=== PATIENT | male | born 1940 | race Caucasian/White ===

== ENCOUNTER 2018-03-10 17:29 | Inpatient (IN) | payer MEDICARE, BC ==
[2018-03-10] MEDS ORDERED: Sodium Chloride 0.9% 10 ML Syringe FLUSH PRN (17:58)
[2018-03-10] MEDS ORDERED: HYDROmorphone 2 MG/ML SDV IVPUSH ONE (17:58)
[2018-03-10] MEDS: Sodium Chloride 0.9% 1,000 ML IV SCH (18:28)
--- NOTE | 2018-03-10 18:44 | EDM.PDOC ---
ED HPI GENERAL MEDICAL PROBLEM - General Chief Complaint: Abdominal Pain Stated Complaint: ABDOMINAL PAIN Time Seen by Provider: 03/10/18 17:35 Source of Information: Reports: Patient, Family, Old Records History Limitations: Reports: No Limitations - History of Present Illness INITIAL COMMENTS - FREE TEXT/NARRATIVE: Mamadou comes into [facility] ED with LLQ abdominal pain since about yesterday afternoon. Pain is crampy, steady, and worse with recumbency. He ate popcorn 36 hrs ago, and believes this may have contributed to suspected diverticulitis. There have been some stools today, without blood, mucous, or diarrhea. There has been no fever, chills, sweats, nausea or vomiting. He had Bactrim DS and Flagyl at home, and started dosing at 4 pm. He has taken no analgesic meds. Lower abdomen Pain Score (Numeric/FACES): 8 - Related Data Allergies Allergy/AdvReac Type Severity Reaction Status Date / Time Iodinated Contrast- Oral and Allergy Swelling Verified 03/10/18 17:57 IV Dye Home Meds: Home Meds Calcium Carbonate [Calcium] 500 mg PO BID 03/10/18 [History] Cholecalciferol (Vitamin D3) [Vitamin D3] 1,000 units PO DAILY 03/10/18 [History ] Finasteride 5 mg DAILY 03/10/18 [History] Pantoprazole [ProTONIX] 40 mg PO DAILY 03/10/18 [History] Sulfamethoxazole/Trimethoprim [Bactrim 400-80 MG] 1 tab Q8H 03/10/18 [History] Tamsulosin HCl 0.8 mg BEDTIME 03/10/18 [History] metroNIDAZOLE [Flagyl] 500 mg PO Q8H 03/10/18 [History] Past Medical History HEENT History: Reports: Cataract Gastrointestinal History: Reports: Diverticulosis, GI Bleed Genitourinary History: Reports: Prostate Disorder Musculoskeletal History: Reports: Arthritis Endocrine/Metabolic History: Reports: Obesity/BMI 30+ Hematologic History: Reports: Anemia, Blood Transfusion(s) - Infectious Disease History Infectious Disease History: Reports: C-Difficile, Measles, Mumps - Past Surgical History HEENT Surgical History: Reports: Adenoidectomy, Cataract Surgery, Eye Surgery, Tonsillectomy Other HEENT Surgeries/Procedures: bilat cataract, L eye surgery GI Surgical History: Reports: Cholecystectomy, Colonoscopy, EGD Musculoskeletal Surgical History: Reports: Knee Replacement, Shoulder Surgery Other Musculoskeletal Surgeries/Procedures:: R shoulder rotar cuff, R knee replacement Social & Family History - Family History Family Medical History: Noncontributory - Tobacco Use Smoking Status *Q: Former Smoker Years of Tobacco use: 25 Used Tobacco, but Quit: Yes Month/Year Tobacco Last Used: 1985 - Caffeine Use Caffeine Use: Reports: Coffee, Soda - Recreational Drug Use Recreational Drug Use: No ED ROS GENERAL - Review of Systems Review Of Systems: See Below Constitutional: Reports: Decreased Appetite HEENT: Reports: No Symptoms Respiratory: Reports: No Symptoms Cardiovascular: Reports: No Symptoms Endocrine: Reports: No Symptoms GI/Abdominal: Reports: Abdominal Pain, Decreased Appetite, Distension : Reports: No Symptoms Musculoskeletal: Reports: No Symptoms Skin: Reports: No Symptoms Neurological: Reports: No Symptoms Psychiatric: Reports: No Symptoms Hematologic/Lymphatic: Reports: No Symptoms Immunologic: Reports: No Symptoms ED EXAM, GI/ABD - Physical Exam Exam: See Below General Appearance: Alert, WD/WN, Moderate Distress, Obese Eyes: Bilateral: Normal Appearance, EOMI Ears: Normal External Exam Nose: Normal Inspection Throat/Mouth: Normal Inspection, Normal Oropharynx Head: Atraumatic, Normocephalic Neck: Normal Inspection, Supple, Non-Tender, Full Range of Motion Respiratory/Chest: Lungs Clear, Normal Breath Sounds, Chest Non-Tender Cardiovascular: Regular Rate, Rhythm, No Murmur GI/Abdominal Exam: Distended, Guarding, Tender (Male) Exam: Deferred Rectal (Males) Exam: Deferred Back Exam: Normal Inspection, Full Range of Motion Extremities: Normal Inspection Neurological: Alert, Oriented, CN II-XII Intact, No Motor/Sensory Deficits Psychiatric: Normal Affect, Anxious Skin Exam: Warm, Intact, Normal Color Lymphatic: No Adenopathy Course - Vital Signs Text/Narrative:: Following assessment at the [facility] ED, an IV was inserted into the RUE, and 1L NS was administered with Dilaudid 2 mg in divided doses pending results of lab work : CBC noted Hgb 15.7 gm, WBC 9,700, ptls normal; nonFBS 185 mg %, lactic a 1.7, other labs were baseline; non contrast Abd-Pelvic CT: findings consistent with acute diverticulitis affecting the entire sigmoid colon, no free air, no abscess formation detected. Patient will be admitted for management. Last Recorded V/S: Last Vital Signs Temp 36.6 C 03/10/18 17:30 Pulse 94 03/10/18 17:30 Resp 20 03/10/18 17:30 BP 148/59 H 03/10/18 17:30 Pulse Ox 99 03/10/18 17:30 - Orders/Labs/Meds Orders: Active Orders 24 hr Category Date Time Status Patient Status Manage Transfer [TRANSFER] Routine ADT 03/10/18 19:05 Ordered Abdomen Pelvis wo Cont [CT] Stat Exams 03/10/18 18:33 Taken UA W/MICROSCOPIC [URIN] Stat Lab 03/10/18 17:58 Ordered Sodium Chloride 0.9% [Normal Saline] 1,000 ml Med 03/10/18 18:00 Active IV ASDIRECTED Sodium Chloride 0.9% [Saline Flush] Med 03/10/18 17:58 Active 10 ml FLUSH ASDIRECTED PRN Peripheral IV Insertion Adult [OM.PC] Routine Oth 03/10/18 17:58 Ordered Medication Orders Sodium Chloride (Normal Saline) 1,000 mls @ 500 mls/hr IV ASDIRECTED [facility] Last Admin: 03/10/18 18:28 Dose: 500 mls/hr Sodium Chloride (Saline Flush) 10 ml FLUSH ASDIRECTED PRN PRN Reason: Keep Vein Open Labs: Laboratory Tests 03/10/18 03/10/18 03/10/18 Range/Units 18:07 18:07 18:07 WBC 9.7 (4.5-12.0) X10-3/uL RBC 5.34 (4.30-5.75) x10(6)uL Hgb 15.7 H (11.5-15.5) g/dL Hct 46.5 (30.0-51.3) % MCV 87.2 (80-96) fL MCH 29.3 (27.7-33.6) pg MCHC 33.7 (32.2-35.4) g/dL RDW 13.2 (11.5-15.5) % Plt Count 275 (125-369) X10(3)uL MPV 7.5 (7.4-10.4) fL Neut % (Auto) 83.5 H (46-82) % Lymph % (Auto) 8.4 L (13-37) % [place] % (Auto) 5.1 (4-12) % Eos % (Auto) 2 (1.0-5.0) % Baso % (Auto) 1 (0-2) % Neut # (Auto) 8.1 (1.6-8.3) # Lymph # (Auto) 0.8 (0.6-5.0) # [place] # (Auto) 0.5 (0.0-1.3) # Eos # (Auto) 0.2 (0.0-0.8) # Baso # (Auto) 0.1 (0.0-0.2) # Sodium 139 (135-145) mmol/L Potassium 3.9 (3.5-5.3) mmol/L Chloride 103 (100-110) mmol/L Carbon Dioxide 28 (21-32) mmol/L BUN 9 (7-18) mg/dL Creatinine 1.1 (0.70-1.30) mg/dL Est Cr Clr Drug Dosing 61.80 mL/min Estimated GFR (MDRD) > 60 (>60) BUN/Creatinine Ratio 8.2 L (9-20) Glucose 185 H (80-116) mg/dL Lactic Acid 1.7 (0.4-2.2) mmol/L Calcium 8.9 (8.6-10.2) mg/dL Total Bilirubin 0.9 (0.1-1.3) mg/dL AST 10 (5-25) IU/L ALT 23 (12-36) U/L Alkaline Phosphatase 63 (56-112) IU/L Total Protein 7.3 (6.0-8.0) g/dL Albumin 3.1 L (3.2-4.6) g/dL Globulin 4.2 g/dL Albumin/Globulin Ratio 0.7 Meds: Medications Generic Name Dose Route Start Last Admin Trade Name Freq PRN Reason Stop Dose Admin Sodium Chloride 1,000 mls @ 500 mls/hr 03/10/18 18:00 03/10/18 18:28 Normal Saline IV 500 mls/hr ASDIRECTED [facility] Administration Sodium Chloride 10 ml 03/10/18 17:58 Saline Flush FLUSH ASDIRECTED PRN Keep Vein Open Discontinued Medications Generic Name Dose Route Start Last Admin Trade Name Freq PRN Reason Stop Dose Admin Hydromorphone HCl 2 mg 03/10/18 17:58 03/10/18 18:27 Dilaudid IVPUSH 03/10/18 17:59 2 mg ONETIME ONE Administration Departure - Departure Time of Disposition: 19:09 Disposition: Admitted As Inpatient 68 Condition: Fair Clinical Impression: Acute diverticulitis - Discharge Information *PRESCRIPTION DRUG MONITORING PROGRAM REVIEWED*: Not Applicable *COPY OF PRESCRIPTION DRUG MONITORING REPORT IN PATIENT DOMINIC: Not Applicable Referrals: Soy Rouse MD [Primary Care Provider] - Forms: ED Department Discharge - Problem List & Annotations (1) Acute diverticulitis SNOMED Code(s): 048286810 Code(s): K57.92 - DVTRCLI OF INTEST, PART UNSP, W/O PERF OR ABSCESS W/O BLEED Status: Acute Current Visit: Yes Annotation/Comment:: admit to med- surg. - Problem List Review Problem List Initiated/Reviewed/Updated: Yes - My Orders Last 24 Hours: My Active Orders 03/10/18 17:58 UA W/MICROSCOPIC [URIN] Stat Sodium Chloride 0.9% [Saline Flush] 10 ml FLUSH ASDIRECTED PRN Peripheral IV Insertion Adult [OM.PC] Routine 03/10/18 18:00 Sodium Chloride 0.9% [Normal Saline] 1,000 ml IV ASDIRECTED 03/10/18 18:33 Abdomen Pelvis wo Cont [CT] Stat 03/10/18 19:05 Patient Status Manage Transfer [TRANSFER] Routine - Assessment/Plan Last 24 Hours: My Active Orders 03/10/18 17:58 UA W/MICROSCOPIC [URIN] Stat Sodium Chloride 0.9% [Saline Flush] 10 ml FLUSH ASDIRECTED PRN Peripheral IV Insertion Adult [OM.PC] Routine 03/10/18 18:00 Sodium Chloride 0.9% [Normal Saline] 1,000 ml IV ASDIRECTED 03/10/18 18:33 Abdomen Pelvis wo Cont [CT] Stat 03/10/18 19:05 Patient Status Manage Transfer [TRANSFER] Routine Plan: Hospitalist to see in the am.
[2018-03-10] MEDS ORDERED: Sodium Chloride 0.9% 1,000 ML IV SCH (19:45)
[2018-03-10] MEDS ORDERED: Levofloxacin/Dextrose 5%-Water 150 ML IV ONE (20:00)
[2018-03-10] MEDS: Levofloxacin/Dextrose 5%-Water 750 MG in Premix Bag 1 BAG IV SCH (20:06)
[2018-03-10] MEDS ORDERED: Ketorolac 30 MG/ML SDV IVPUSH PRN (22:02)
[2018-03-10] MEDS: metroNIDAZOLE/Normal Saline 500 MG in Premix Bag 1 BAG IV SCH (22:07)
[2018-03-11] MEDS: Sodium Chloride 0.9% 1,000 ML IV SCH ×3 (01:21→15:45)
[2018-03-11] MEDS: metroNIDAZOLE/Normal Saline 500 MG in Premix Bag 1 BAG IV SCH ×3 (06:07→22:44)
[2018-03-11] MEDS ORDERED: Ketorolac 15 MG/ML SDV IVPUSH PRN (08:27)
--- NOTE | 2018-03-11 09:11 | PCM.HP ---
H&P History of Present Illness - General Date of Service: 03/11/18 Admit Problem/Dx: Admission Diagnosis/Problem Admission Diagnosis/Problem Acute diverticulitis of intestine History Limitations: Reports: No Limitations - History of Present Illness Initial Comments - Free Text/Narative: 77 yo with severe,sharp lower left abd pain x 3 days.Started after ingesting popcorn. No association with changes in bowel habits.He does have a h/o diverticulitis. Last colonoscopy about 3 years ago. Lower abdomen Pain Score (Numeric/FACES): 3 - Related Data Allergies/Adverse Reactions: Allergies Allergy/AdvReac Type Severity Reaction Status Date / Time Iodinated Contrast- Oral and Allergy Swelling Verified 03/10/18 17:57 IV Dye Home Medications: Home Meds Calcium Carbonate [Calcium] 500 mg PO BID 03/10/18 [History] Cholecalciferol (Vitamin D3) [Vitamin D3] 1,000 units PO DAILY 03/10/18 [History ] Finasteride 5 mg DAILY 03/10/18 [History] Pantoprazole [ProTONIX] 40 mg PO DAILY 03/10/18 [History] Sulfamethoxazole/Trimethoprim [Bactrim 400-80 MG] 1 tab Q8H 03/10/18 [History] Tamsulosin HCl 0.8 mg BEDTIME 03/10/18 [History] metroNIDAZOLE [Flagyl] 500 mg PO Q8H 03/10/18 [History] Dextran 70/Hypromellose [Artificial Tears] 1 drop EYEBOTH ASDIRECTED PRN [History] Past Medical History HEENT History: Reports: Cataract Gastrointestinal History: Reports: Diverticulosis, GI Bleed Genitourinary History: Reports: Prostate Disorder Musculoskeletal History: Reports: Arthritis Endocrine/Metabolic History: Reports: Obesity/BMI 30+ Hematologic History: Reports: Anemia, Blood Transfusion(s) - Infectious Disease History Infectious Disease History: Reports: C-Difficile, Measles, Mumps - Past Surgical History HEENT Surgical History: Reports: Adenoidectomy, Cataract Surgery, Eye Surgery, Tonsillectomy Other HEENT Surgeries/Procedures: bilat cataract, L eye surgery GI Surgical History: Reports: Cholecystectomy, Colonoscopy, EGD Musculoskeletal Surgical History: Reports: Knee Replacement, Shoulder Surgery Other Musculoskeletal Surgeries/Procedures:: R shoulder rotar cuff, R knee replacement Social & Family History - Family History Family Medical History: Noncontributory - Tobacco Use Smoking Status *Q: Former Smoker Years of Tobacco use: 25 Used Tobacco, but Quit: Yes Month/Year Tobacco Last Used: 25 years ago - Caffeine Use Caffeine Use: Reports: Soda Other Caffeine Use: 1 and half soda daily - Recreational Drug Use Recreational Drug Use: No H&P Review of Systems - Review of Systems: Review Of Systems: ROS reveals no pertinent complaints other than HPI. Exam - Exam Exam: See Below - Vital Signs Vital Signs: Last Vital Signs Temp 97.6 F 03/11/18 04:00 Pulse 69 03/11/18 04:00 Resp 20 03/11/18 04:00 BP 122/64 03/11/18 04:00 Pulse Ox 95 03/10/18 22:00 Weight: 121.223 kg - Exam General: Alert, Oriented, 4 HEENT: PERRLA, Hearing Intact, Mucosa Moist & [place], Nares Patent, Normal Nasal Septum, Posterior Pharynx Clear, Conjunctiva Clear, EOMI, EACs Clear, TMs Clear Neck: Supple, Trachea Midline, 2 Lungs: Clear to Auscultation, Normal Respiratory Effort Cardiovascular: Regular Rate, Regular Rhythm GI/Abdominal Exam: Normal Bowel Sounds, Tender (LLQ). No: Mass, Splenomegaly (Male) Exam: Deferred Rectal (Males) Exam: Deferred Back Exam: Normal Inspection, Full Range of Motion, NT Extremities: Normal Inspection, Normal Range of Motion, Non-Tender, No Pedal Edema, Normal Capillary Refill Skin: Warm, Dry, Intact Neurological: Cranial Nerves Intact, Reflexes Equal Bilateral Neuro Extensive - Mental Status: Alert, Oriented x3, Normal Mood/Affect, Normal Cognition Neuro Extensive - Motor, Sensory, Reflexes: CN II-XII Intact, Normal Gait, Normal Reflexes Psychiatric: Alert, Normal Affect, Normal Mood - Patient Data Lab Results Last 24 hrs: Laboratory Results - last 24 hr 03/10/18 03/10/18 03/10/18 Range/Units 18:07 18:07 18:07 WBC 9.7 (4.5-12.0) X10-3/uL RBC 5.34 (4.30-5.75) x10(6)uL Hgb 15.7 H (11.5-15.5) g/dL Hct 46.5 (30.0-51.3) % MCV 87.2 (80-96) fL MCH 29.3 (27.7-33.6) pg MCHC 33.7 (32.2-35.4) g/dL RDW 13.2 (11.5-15.5) % Plt Count 275 (125-369) X10(3)uL MPV 7.5 (7.4-10.4) fL Neut % (Auto) 83.5 H (46-82) % Lymph % (Auto) 8.4 L (13-37) % [place] % (Auto) 5.1 (4-12) % Eos % (Auto) 2 (1.0-5.0) % Baso % (Auto) 1 (0-2) % Neut # (Auto) 8.1 (1.6-8.3) # Lymph # (Auto) 0.8 (0.6-5.0) # [place] # (Auto) 0.5 (0.0-1.3) # Eos # (Auto) 0.2 (0.0-0.8) # Baso # (Auto) 0.1 (0.0-0.2) # Sodium 139 (135-145) mmol/L Potassium 3.9 (3.5-5.3) mmol/L Chloride 103 (100-110) mmol/L Carbon Dioxide 28 (21-32) mmol/L BUN 9 (7-18) mg/dL Creatinine 1.1 (0.70-1.30) mg/dL Est Cr Clr Drug Dosing 61.80 mL/min Estimated GFR (MDRD) > 60 (>60) BUN/Creatinine Ratio 8.2 L (9-20) Glucose 185 H (80-116) mg/dL Lactic Acid 1.7 (0.4-2.2) mmol/L Calcium 8.9 (8.6-10.2) mg/dL Total Bilirubin 0.9 (0.1-1.3) mg/dL AST 10 (5-25) IU/L ALT 23 (12-36) U/L Alkaline Phosphatase 63 (56-112) IU/L Total Protein 7.3 (6.0-8.0) g/dL Albumin 3.1 L (3.2-4.6) g/dL Globulin 4.2 g/dL Albumin/Globulin Ratio 0.7 Urine Color (YELLOW) Urine Appearance (CLEAR) Urine pH (5.0-6.5) Ur Specific [place] (1.010-1.025) Urine Protein (NEGATIVE) mg/dL Urine Glucose (UA) (NEGATIVE) mg/dL Urine Ketones (NEGATIVE) mg/dL Urine Occult Blood (NEGATIVE) Urine Nitrite (NEGATIVE) Urine Bilirubin (NEGATIVE) Urine Urobilinogen (NEGATIVE) mg/dL Ur Leukocyte Esterase (NEGATIVE) Urine RBC (0) Urine WBC (0) Ur Squamous Epith Cells (NS,R,O) Urine Bacteria (NS) Urine Mucus (NS) 03/10/18 Range/Units 20:43 WBC (4.5-12.0) X10-3/uL RBC (4.30-5.75) x10(6)uL Hgb (11.5-15.5) g/dL Hct (30.0-51.3) % MCV (80-96) fL MCH (27.7-33.6) pg MCHC (32.2-35.4) g/dL RDW (11.5-15.5) % Plt Count (125-369) X10(3)uL MPV (7.4-10.4) fL Neut % (Auto) (46-82) % Lymph % (Auto) (13-37) % [place] % (Auto) (4-12) % Eos % (Auto) (1.0-5.0) % Baso % (Auto) (0-2) % Neut # (Auto) (1.6-8.3) # Lymph # (Auto) (0.6-5.0) # [place] # (Auto) (0.0-1.3) # Eos # (Auto) (0.0-0.8) # Baso # (Auto) (0.0-0.2) # Sodium (135-145) mmol/L Potassium (3.5-5.3) mmol/L Chloride (100-110) mmol/L Carbon Dioxide (21-32) mmol/L BUN (7-18) mg/dL Creatinine (0.70-1.30) mg/dL Est Cr Clr Drug Dosing mL/min Estimated GFR (MDRD) (>60) BUN/Creatinine Ratio (9-20) Glucose (80-116) mg/dL Lactic Acid (0.4-2.2) mmol/L Calcium (8.6-10.2) mg/dL Total Bilirubin (0.1-1.3) mg/dL AST (5-25) IU/L ALT (12-36) U/L Alkaline Phosphatase (56-112) IU/L Total Protein (6.0-8.0) g/dL Albumin (3.2-4.6) g/dL Globulin g/dL Albumin/Globulin Ratio Urine Color Yellow (YELLOW) Urine Appearance Clear (CLEAR) Urine pH 5.0 (5.0-6.5) Ur Specific [place] 1.020 (1.010-1.025) Urine Protein Negative (NEGATIVE) mg/dL Urine Glucose (UA) Normal (NEGATIVE) mg/dL Urine Ketones Negative (NEGATIVE) mg/dL Urine Occult Blood Negative (NEGATIVE) Urine Nitrite Negative (NEGATIVE) Urine Bilirubin Small H (NEGATIVE) Urine Urobilinogen 1 H (NEGATIVE) mg/dL Ur Leukocyte Esterase Small H (NEGATIVE) Urine RBC 0-5 (0) Urine WBC 0-5 (0) Ur Squamous Epith Cells Occasional (NS,R,O) Urine Bacteria Few H (NS) Urine Mucus Few H (NS) Result Diagrams: 03/10/18 18:07 03/10/18 18:07 - Problem List (1) Acute diverticulitis SNOMED Code(s): 516734694 ICD Code: K57.92 - DVTRCLI OF INTEST, PART UNSP, W/O PERF OR ABSCESS W/O BLEED Status: Acute Current Visit: Yes Problem Details: admit to med- surg. (2) LADARIUS (obstructive sleep apnea) SNOMED Code(s): 81163911 ICD Code: G47.33 - OBSTRUCTIVE SLEEP APNEA (ADULT) (PEDIATRIC) Status: Acute Current Visit: Yes (3) HLD (hyperlipidemia) SNOMED Code(s): 48907990 ICD Code: E78.5 - HYPERLIPIDEMIA, UNSPECIFIED Status: Chronic Current Visit: Yes Qualifiers: Hyperlipidemia type: unspecified Qualified Code(s): E78.5 - Hyperlipidemia , unspecified (4) BPH (benign prostatic hyperplasia) SNOMED Code(s): 297157519 ICD Code: N40.0 - BENIGN PROSTATIC HYPERPLASIA WITHOUT LOWER URINRY TRACT SYMP Status: Chronic Current Visit: Yes (5) Obesity SNOMED Code(s): 104447457, 260476912 ICD Code: E66.9 - OBESITY, UNSPECIFIED Status: Chronic Current Visit: Yes Qualifiers: Obesity type: due to excess calories Problem List Initiated/Reviewed/Updated: Yes Orders Last 24hrs: Active Orders 24 hr Category Date Time Status Bedrest Bathroom Privileges [RC] ASDIRECTED Care 03/10/18 19:10 Active Oxygen Therapy [RC] PRN Care 03/10/18 19:10 Active Vital Signs [RC] 00,04,08,12,16,20 Care 03/10/18 19:10 Active Abdomen Pelvis wo Cont [CT] Stat Exams 03/10/18 18:33 Taken Ketorolac [Toradol] Med 03/11/18 08:27 Active 15 mg IVPUSH Q6H PRN Levofloxacin/Dextrose 5%-Water [Levaquin in D5W 750 MG/ Med 03/10/18 20:00 Active 150 ML] 750 mg Premix Bag 1 bag IV Q24H Sodium Chloride 0.9% [Normal Saline] 1,000 ml Med 03/10/18 18:00 Active IV ASDIRECTED Sodium Chloride 0.9% [Normal Saline] 1,000 ml Med 03/10/18 19:15 Active IV ASDIRECTED Sodium Chloride 0.9% [Normal Saline] 1,000 ml Med 03/10/18 19:45 Active IV ASDIRECTED Sodium Chloride 0.9% [Saline Flush] Med 03/10/18 17:58 Active 10 ml FLUSH ASDIRECTED PRN metroNIDAZOLE/Normal Saline [Flagyl 500 MG in NS 100 ML Med 03/10/18 22:00 Active ] 500 mg Premix Bag 1 bag IV Q8H Peripheral IV Insertion Adult [OM.PC] Routine Oth 03/10/18 17:58 Ordered Resuscitation Status Routine Resus Stat 03/10/18 19:10 Ordered Medication Orders Sodium Chloride (Normal Saline) 1,000 mls @ 500 mls/hr IV ASDIRECTED [facility] Last Admin: 03/10/18 18:28 Dose: 500 mls/hr Sodium Chloride (Normal Saline) 1,000 mls @ 150 mls/hr IV ASDIRECTED [facility] Last Admin: 03/11/18 01:21 Dose: 150 mls/hr Levofloxacin/Dextrose 750 mg/ (Premix) 150 mls @ 100 mls/hr IV Q24H [facility] Last Admin: 03/10/18 20:06 Dose: 100 mls/hr Metronidazole 500 mg/ Premix 100 mls @ 100 mls/hr IV Q8H [facility] Last Admin: 03/11/18 06:07 Dose: 100 mls/hr Infusion: 03/10/18 23:07 Dose: 100 mls/hr Admin: 03/10/18 22:07 Dose: 100 mls/hr Sodium Chloride (Normal Saline) 1,000 mls @ 150 mls/hr IV ASDIRECTED [facility] Ketorolac Tromethamine (Toradol) 15 mg IVPUSH Q6H PRN PRN Reason: PAIN Sodium Chloride (Saline Flush) 10 ml FLUSH ASDIRECTED PRN PRN Reason: Keep Vein Open Assessment/Plan Comment:: Sammy has improved in his pain. He has no fever chills and feels better today. I' m going to increase his fluid intake orally, but no solid food. Continue Levaquin and Flagyl.
--- NOTE | 2018-03-11 09:44 | CT ---
INDICATION: Suspect acute diverticulitis, left lower quadrant pain with guarding. CT ABDOMEN AND PELVIS WITHOUT CONTRAST: Spiral 1.25 mm axial sections were obtained through the abdomen and pelvis without contrast, due to apparent allergy. Sagittal and coronal reconstructions were obtained. Total exam DLP = 2,295.89 mGy-cm. At the lung bases, there are some linear densities compatible with minimal fibrosis and possibly some very minimal atelectasis. No active infiltrate or effusion was seen. The heart did not appear enlarged. No pericardial effusion was seen. The liver did not appear enlarged. However, it was relatively low in density, compatible with fatty infiltration. The adrenal glands appeared normal. There is some renal cortical scarring noted bilaterally with a 23 mm exophytic rounded mass off the posterolateral cortex of the mid pole of the left kidney, most likely representing a cyst. Renal cortex is only minimally scarred on the left. The spleen and pancreas appear normal with some fatty replacement of the pancreas noted. Calcifications are noted in the abdominal aorta and at the origin of the celiac axis and superior mesenteric artery with calcifications in the iliac and femoral arteries. Diverticulosis coli is noted throughout most of the colon with most numerus diverticula in the distal descending and sigmoid area, where a fairly long segment of thickened wall and fat stranding adjacent to the colon is noted, compatible with diverticulitis. No abscess or free air was seen. No free fluid collection was identified. No other mass lesions, organomegaly, or free fluid collections were identified in the abdomen or pelvis. The gallbladder is absent, compatible with history of its removal. No retroperitoneal masses were identified with minimal retroperitoneal lymphadenopathy, which is nonspecific. An umbilical hernia is noted, including only fat. IMPRESSION: 1. Most notable finding is an area of diverticulitis in the distal descending - sigmoid colon. 2. Diverticulosis coli in general without evidence of diverticulitis, except in the distal descending - sigmoid area. 3. ASD. 4. Minimal scarring in lung bases. 5. Degenerative changes and some disk disease thoracolumbar spine. 6. Renal cortical scarring with a small probably benign cyst off the left kidney. MTDD
[2018-03-11] MEDS: Levofloxacin/Dextrose 5%-Water 750 MG in Premix Bag 1 BAG IV SCH (19:19)
[2018-03-12] MEDS: metroNIDAZOLE/Normal Saline 500 MG in Premix Bag 1 BAG IV SCH (05:03)
--- NOTE | 2018-03-12 09:36 | PCM.PN ---
- General Info Date of Service: 03/12/18 Subjective Update: Mamadou has been able to tolerate full liquid diet, with minimal pain. He feels ready to go home today. Functional Status: Reports: Pain Controlled - Review of Systems Pulmonary: Reports: No Symptoms Cardiovascular: Reports: No Symptoms Gastrointestinal: Reports: No Symptoms - Patient Data Vitals - Most Recent: Last Vital Signs Temp 97.6 F 03/12/18 05:00 Pulse 65 03/12/18 05:00 Resp 16 03/12/18 05:00 BP 116/69 03/12/18 05:00 Pulse Ox 94 L 03/12/18 05:00 Weight - Most Recent: 121.223 kg I&O - Last 24 Hours: Intake & Output 03/11/18 03/12/18 03/12/18 22:59 06:59 14:59 Intake Total 1500 828 Balance 1500 828 Lab Results Last 24 Hours: Laboratory Results - last 24 hr 03/12/18 03/12/18 Range/Units 06:06 06:06 WBC 6.7 (4.5-12.0) X10-3/uL RBC 4.69 (4.30-5.75) x10(6)uL Hgb 13.7 (11.5-15.5) g/dL Hct 40.9 (30.0-51.3) % MCV 87.2 (80-96) fL MCH 29.3 (27.7-33.6) pg MCHC 33.6 (32.2-35.4) g/dL RDW 13.2 (11.5-15.5) % Plt Count 217 (125-369) X10(3)uL MPV 7.7 (7.4-10.4) fL Neut % (Auto) 70.0 (46-82) % Lymph % (Auto) 15.5 (13-37) % [place] % (Auto) 8.4 (4-12) % Eos % (Auto) 6 H (1.0-5.0) % Baso % (Auto) 1 (0-2) % Neut # (Auto) 4.7 (1.6-8.3) # Lymph # (Auto) 1.0 (0.6-5.0) # [place] # (Auto) 0.6 (0.0-1.3) # Eos # (Auto) 0.4 (0.0-0.8) # Baso # (Auto) 0.0 (0.0-0.2) # Sodium 141 (135-145) mmol/L Potassium 4.0 (3.5-5.3) mmol/L Chloride 108 D (100-110) mmol/L Carbon Dioxide 26 (21-32) mmol/L BUN 11 (7-18) mg/dL Creatinine 0.9 (0.70-1.30) mg/dL Est Cr Clr Drug Dosing 75.53 mL/min Estimated GFR (MDRD) > 60 (>60) BUN/Creatinine Ratio 12.2 (9-20) Glucose 100 D (80-116) mg/dL Calcium 8.7 (8.6-10.2) mg/dL Total Bilirubin 1.1 (0.1-1.3) mg/dL AST 12 D (5-25) IU/L ALT 18 D (12-36) U/L Alkaline Phosphatase 47 L (56-112) IU/L Total Protein 6.3 (6.0-8.0) g/dL Albumin 2.5 L (3.2-4.6) g/dL Globulin 3.8 g/dL Albumin/Globulin Ratio 0.7 Med Orders - Current: Current Medications Sodium Chloride (Normal Saline) 1,000 mls @ 500 mls/hr IV ASDIRECTED [facility] Last Admin: 03/11/18 15:45 Dose: 150 mls/hr Sodium Chloride (Normal Saline) 1,000 mls @ 150 mls/hr IV ASDIRECTED [facility] Last Admin: 03/11/18 09:20 Dose: 150 mls/hr Levofloxacin/Dextrose 750 mg/ (Premix) 150 mls @ 100 mls/hr IV Q24H [facility] Last Admin: 03/11/18 19:19 Dose: 100 mls/hr Metronidazole 500 mg/ Premix 100 mls @ 100 mls/hr IV Q8H [facility] Last Admin: 03/12/18 05:03 Dose: 100 mls/hr Sodium Chloride (Normal Saline) 1,000 mls @ 150 mls/hr IV ASDIRECTED [facility] Last Admin: 03/12/18 04:56 Dose: 150 mls/hr Ketorolac Tromethamine (Toradol) 15 mg IVPUSH Q6H PRN PRN Reason: PAIN Sodium Chloride (Saline Flush) 10 ml FLUSH ASDIRECTED PRN PRN Reason: Keep Vein Open Discontinued Medications Hydromorphone HCl (Dilaudid) 2 mg IVPUSH ONETIME ONE Stop: 03/10/18 17:59 Last Admin: 03/10/18 18:27 Dose: 2 mg Levofloxacin/Dextrose (Levaquin In D5w 750 Mg/150 Ml) Confirm Administered Dose 150 mls @ as directed IV .STK-MED ONE Stop: 03/10/18 20:01 Last Admin: 03/10/18 21:33 Dose: Not Given Ketorolac Tromethamine (Toradol) 30 mg IVPUSH Q6H PRN PRN Reason: Pain Stop: 03/15/18 22:04 Last Admin: 03/10/18 22:59 Dose: 30 mg - Exam General: Alert, Oriented HEENT: Pupils Equal Neck: Supple GI/Abdominal Exam: Normal Bowel Sounds, Tender (llq) (Male) Exam: No Hernia - Problem List & Annotations (1) Acute diverticulitis SNOMED Code(s): 696907178 Code(s): K57.92 - DVTRCLI OF INTEST, PART UNSP, W/O PERF OR ABSCESS W/O BLEED Status: Acute Current Visit: Yes Annotation/Comment:: admit to med- surg. (2) LADARIUS (obstructive sleep apnea) SNOMED Code(s): 13947419 Code(s): G47.33 - OBSTRUCTIVE SLEEP APNEA (ADULT) (PEDIATRIC) Status: Acute Current Visit: Yes (3) HLD (hyperlipidemia) SNOMED Code(s): 94789956 Code(s): E78.5 - HYPERLIPIDEMIA, UNSPECIFIED Status: Chronic Current Visit: Yes Qualifiers: Hyperlipidemia type: unspecified Qualified Code(s): E78.5 - Hyperlipidemia , unspecified (4) BPH (benign prostatic hyperplasia) SNOMED Code(s): 802491680 Code(s): N40.0 - BENIGN PROSTATIC HYPERPLASIA WITHOUT LOWER URINRY TRACT SYMP Status: Chronic Current Visit: Yes (5) Obesity SNOMED Code(s): 012209225, 718978789 Code(s): E66.9 - OBESITY, UNSPECIFIED Status: Chronic Current Visit: Yes Qualifiers: Obesity type: due to excess calories - Problem List Review Problem List Initiated/Reviewed/Updated: Yes - My Orders Last 24 Hours: My Active Orders 03/11/18 10:31 Influenza Vaccine Charge [RC] .DISCHARGE 03/11/18 Dinner Full Liquid Diet [DIET] - Plan Plan:: Sammy will need colonoscopy at some point. I've advised him to see his primary care physician in about 1-2 weeks. I will advance his diet to regular diet, and discharge him home today on oral Levaquin and Flagyl.
--- NOTE | 2018-03-12 10:11 | DISCH ---
DISCHARGE DATE: 03/12/2018 REASON FOR ADMISSION: Acute diverticulitis. DISCHARGE DIAGNOSIS: Acute diverticulitis. HISTORY OF PRESENT ILLNESS: This is a 77-year-old male who was admitted for 2- day history of left lower quadrant abdominal pain that was found to be diverticulitis on the CT scan. He was admitted, put n.p.o., given fluids and IV Levaquin and Flagyl, improved progressively and is ready to go home on the March 12, 2018, today on oral antibiotics. I will discharge himhome on Levaquin 750 mg daily for 1 week and Flagyl 500 mg p.o. t.i.d. for 1 week. FOLLOWUP: Dr. Rouse on March 21, 2018. Return to me to the ER with any worsening symptoms. I spent more than 35 minutes in this discharge of this patient. /[id number] SORAYA/ANDRES
== END 2018-03-12 11:10 | disposition home or self-care (01) | DRG 392 ==
LOC: FB.ED 17:29 → FB.MS 19:05
PROVIDERS: ADMIT Family Medicine; ATTEND Family Medicine
DX: K57.32 Diverticulitis of large intestine without perforation or abscess without bleeding (principal); M19.90 Unspecified osteoarthritis, unspecified site; N42.9 Disorder of prostate, unspecified; E66.9 Obesity, unspecified; G47.33 Obstructive sleep apnea (adult) (pediatric); E78.5 Hyperlipidemia, unspecified; D64.9 Anemia, unspecified; Z90.49 Acquired absence of other specified parts of digestive tract; Z96.651 Presence of right artificial knee joint; Z91.041 Radiographic dye allergy status; R10.32 Left lower quadrant pain; Z79.899 Other long term (current) drug therapy; Z87.891 Personal history of nicotine dependence; Z68.37 Body mass index [BMI] 37.0-37.9, adult
CPT/HCPCS: 36415; 74176; 80053; 81001; 83605; 85025; 90686; 96361; 96374; 99285; J1170; J1885; J1956; J3490; J7030

== ENCOUNTER 2020-08-06 05:09 | Emergency (ER) | payer MEDICARE, BC ==
[2020-08-06] MEDS ORDERED: Sodium Chloride 0.9% 1,000 ML IV ONE (06:17)
--- NOTE | 2020-08-06 06:25 | EDM.PDOC ---
ED HPI GENERAL MEDICAL PROBLEM - General Chief Complaint: Abdominal Pain Stated Complaint: ABDOMINAL PAIN Time Seen by Provider: 08/06/20 05:20 Source of Information: Reports: Patient, Family History Limitations: Reports: No Limitations - History of Present Illness INITIAL COMMENTS - FREE TEXT/NARRATIVE: c/o LUQ pain pt awoke 4a, 1.5h [employer] with 5/10 pain localized LUQ without radiation, took Tyl x 2, pain dec'd 2/10 now, not cramping, ache, inc'd with deep breath altho no chest pain no alcohol, thinks it may be diverticulitis which he has had several times in past last colonoscopy 3y [address] Dr Jenkins PSH included choly, possible appy (pt does not remember for sure) pt in good health, has been on a high fiber diet, drank a shake and ate vegetable for supper last night, had a soft BM yesterday, had used stool softners in past although not since he has been on the Profile Diet, trying to loose a few points - Related Data Allergies Allergy/AdvReac Type Severity Reaction Status Date / Time Iodinated Contrast Media Allergy Edema Verified 05/21/18 06:59 Home Meds: Home Meds Cholecalciferol (Vitamin D3) [Vitamin D3] 1,000 units PO DAILY 03/10/18 [History] Finasteride 5 mg PO DAILY 03/10/18 [History] Pantoprazole [ProTONIX] 40 mg PO DAILY 03/10/18 [History] Tamsulosin HCl 0.8 mg PO BEDTIME 03/10/18 [History] Aspirin 81 mg PO DAILY 05/20/18 [History] Clotrimazole/Betamethasone Dip [Lotrisone Cream] 1 applic TOP BID 05/20/18 [History] Dextran/Hypromellose/Glycerin [Genteal Tears 0.1%-0.2%-0.3%] 1 drop EYEBOTH Q6H PRN 05/20/18 [History] L.acidoph,Paracasei, B.lactis [Probiotic] 1 each PO DAILY 05/20/18 [History] Psyllium [Metamucil SF] 1 tbs PO DAILY 05/20/18 [History] Sodium Chloride [Saline Nasal [place]] 2 spray NASBOTH Q2H PRN 05/20/18 [History] Ciprofloxacin HCl [Cipro] 500 mg PO BID #13 tablet 08/06/20 [Rx] metroNIDAZOLE [Flagyl] 500 mg PO BID #13 tab 08/06/20 [Rx] Past Medical History HEENT History: Reports: Cataract, Impaired Vision Cardiovascular History: Reports: High Cholesterol Respiratory History: Reports: Sleep Apnea Gastrointestinal History: Reports: Diverticulosis, GERD, GI Bleed Genitourinary History: Reports: Prostate Disorder, Other (See Below) Other Genitourinary History: URINARY FREQUESNCY AND INCOMPLETE BLADDER EMPTYING, LUTS Musculoskeletal History: Reports: Arthritis, Neck Pain, Chronic, Osteoarthritis Neurological History: Reports: None Psychiatric History: Reports: None Endocrine/Metabolic History: Reports: Obesity/BMI 30+ Hematologic History: Reports: Anemia, Blood Transfusion(s) Immunologic History: Reports: None Oncologic (Cancer) History: Reports: None Dermatologic History: Reports: None - Infectious Disease History Infectious Disease History: Reports: C-Difficile, Measles, Mumps - Past Surgical History Head Surgeries/Procedures: Reports: None HEENT Surgical History: Reports: Adenoidectomy, Cataract Surgery, Eye Surgery, Tonsillectomy Other HEENT Surgeries/Procedures: bilat cataract, L VITRECTOMY Cardiovascular Surgical History: Reports: None Respiratory Surgical History: Reports: None GI Surgical History: Reports: Appendectomy, Cholecystectomy, Colonoscopy, EGD Male Surgical History: Reports: Vasectomy Endocrine Surgical History: Reports: None Neurological Surgical History: Reports: None Musculoskeletal Surgical History: Reports: Arthroscopic Procedure, Knee Replacement, Shoulder Surgery Other Musculoskeletal Surgeries/Procedures:: R shoulder rotar cuff, R knee replacement Oncologic Surgical History: Reports: None Dermatological Surgical History: Reports: None Social & Family History - Family History Family Medical History: No Pertinent Family History - Caffeine Use Caffeine Use: Reports: Coffee, Soda, Tea Other Caffeine Use: 1 and half soda daily ED ROS GENERAL - Review of Systems Review Of Systems: See Below Constitutional: Reports: No Symptoms HEENT: Reports: No Symptoms Respiratory: Reports: No Symptoms Cardiovascular: Reports: No Symptoms Endocrine: Reports: No Symptoms GI/Abdominal: Reports: Abdominal Pain. Denies: Black Stool, Bloody Stool, Constipation, Diarrhea, Decreased Appetite, Nausea, Vomiting : Reports: No Symptoms Musculoskeletal: Reports: No Symptoms Skin: Reports: No Symptoms Neurological: Reports: No Symptoms Psychiatric: Reports: No Symptoms Hematologic/Lymphatic: Reports: No Symptoms Immunologic: Reports: No Symptoms ED EXAM, GI/ABD - Physical Exam Exam: See Below Exam Limited By: No Limitations General Appearance: Alert, WD/WN, No Apparent Distress, Other (nonill) Ears: Hearing Grossly Normal Nose: Normal Inspection Throat/Mouth: Normal Voice, No Airway Compromise Head: Atraumatic, Normocephalic Neck: Normal Inspection, Supple, Non-Tender, Full Range of Motion. No: Lymphadenopathy (R), Lymphadenopathy (L) Respiratory/Chest: No Respiratory Distress, Lungs Clear, Normal Breath Sounds, Chest Non-Tender Cardiovascular: Regular Rate, Rhythm, No Edema, No Gallop, No Murmur, No Rub GI/Abdominal Exam: Normal Bowel Sounds, Soft, No Distention, Other (1+ tender LUQ in mid axillary line without guard/rebound, no true flank tender on L, no epigastric tender, no lower abd tender). No: Guarding, Rigid, Rebound, Hepatomegaly, Splenomegaly Back Exam: Normal Inspection, Full Range of Motion Extremities: Normal Inspection, Non-Tender, No Pedal Edema Neurological: Alert, Oriented, CN II-XII Intact, No Motor/Sensory Deficits Psychiatric: Normal Affect, Normal Mood Skin Exam: Warm, Dry, Intact, Normal Color, No Rash Lymphatic: No Adenopathy Course - Vital Signs Last Recorded V/S: Last Vital Signs Temp 36.7 C 08/06/20 05:20 Pulse 63 08/06/20 05:20 Resp 16 08/06/20 05:20 BP 109/64 08/06/20 05:20 Pulse Ox 98 08/06/20 05:20 - Orders/Labs/Meds Orders: Active Orders 24 hr Category Date Time Status Abdomen Pelvis wo Cont [CT] Stat Exams 08/06/20 05:55 Taken Sodium Chloride 0.9% [Normal Saline] 1,000 ml Med 08/06/20 06:17 Ordered IV .BOLUS Medication Orders Sodium Chloride (Normal Saline) 1,000 mls @ 999 mls/hr IV .BOLUS ONE Stop: 08/06/20 07:17 Labs: Laboratory Tests 08/06/20 08/06/20 08/06/20 Range/Units 05:15 06:05 06:05 WBC 6.2 (3.2-10.1) x10-3/uL RBC 5.03 (3.90-5.90) x10(6)uL Hgb 14.5 (12.9-17.7) g/dL Hct 45.0 (38.3-50.1) % MCV 89.4 (80.8-98.7) fL MCH 28.8 (27.0-33.3) pg MCHC 32.2 (28.7-35.3) g/dL RDW 14.2 (12.4-15.0) % Plt Count 222 (117-477) x10(3)uL MPV 8.4 (6.7-11.0) fL Neut % (Auto) 71.7 (40.3-71.8) % Lymph % (Auto) 14.7 L (15.8-45.3) % [place] % (Auto) 9.2 (5.5-15.2) % Eos % (Auto) 3.8 (0.1-6.8) % Baso % (Auto) 0.6 (0.3-3.8) % Neut # (Auto) 4.5 (1.7-6.9) x10-3/uL Lymph # (Auto) 0.9 (0.5-4.5) x10-3/uL [place] # (Auto) 0.6 (0.0-1.2) x10-3/uL Eos # (Auto) 0.2 (0.0-0.6) x10-3/uL Baso # (Auto) 0.0 (0.0-0.3) x10-3/uL Sodium 140 (135-145) mmol/L Potassium 3.9 (3.5-5.3) mmol/L Chloride 103 D (100-110) mmol/L Carbon Dioxide 28 (21-32) mmol/L BUN 24 H D (7-18) mg/dL Creatinine 1.0 (0.70-1.30) mg/dL Est Cr Clr Drug Dosing 65.89 mL/min Estimated GFR (MDRD) > 60 (>60) BUN/Creatinine Ratio 24.0 H (9-20) Glucose 106 (80-116) mg/dL Calcium 9.6 (8.6-10.2) mg/dL Total Bilirubin 0.8 (0.1-1.3) mg/dL AST 20 D (5-25) IU/L ALT 37 H D (12-36) U/L Alkaline Phosphatase 42 L (56-112) IU/L Troponin I (4.0-60.3) pg/mL C-Reactive Protein (0.5-0.9) mg/dL Total Protein 7.2 (6.0-8.0) g/dL Albumin 3.6 (3.2-4.6) g/dL Globulin 3.6 g/dL Albumin/Globulin Ratio 1.0 Lipase (73-393) U/L Urine Color Yellow (YELLOW) Urine Appearance Clear (CLEAR) Urine pH 5.0 (5.0-6.5) Ur Specific [place] 1.025 (1.010-1.025) Urine Protein Negative (NEGATIVE) mg/dL Urine Glucose (UA) Normal (NORMAL) mg/dL Urine Ketones 15 H (NEGATIVE) mg/dL Urine Occult Blood Negative (NEGATIVE) Urine Nitrite Negative (NEGATIVE) Urine Bilirubin Negative (NEGATIVE) Urine Urobilinogen Normal (NEGATIVE) mg/dL Ur Leukocyte Esterase Negative (NEGATIVE) Urine RBC 0-5 (0-5) Urine WBC 0-5 (0-5) Ur Squamous Epith Cells Occasional (NS,R,O) Urine Bacteria Few H (NS) 08/06/20 08/06/20 Range/Units 06:05 06:05 WBC (3.2-10.1) x10-3/uL RBC (3.90-5.90) x10(6)uL Hgb (12.9-17.7) g/dL Hct (38.3-50.1) % MCV (80.8-98.7) fL MCH (27.0-33.3) pg MCHC (28.7-35.3) g/dL RDW (12.4-15.0) % Plt Count (117-477) x10(3)uL MPV (6.7-11.0) fL Neut % (Auto) (40.3-71.8) % Lymph % (Auto) (15.8-45.3) % [place] % (Auto) (5.5-15.2) % Eos % (Auto) (0.1-6.8) % Baso % (Auto) (0.3-3.8) % Neut # (Auto) (1.7-6.9) x10-3/uL Lymph # (Auto) (0.5-4.5) x10-3/uL [place] # (Auto) (0.0-1.2) x10-3/uL Eos # (Auto) (0.0-0.6) x10-3/uL Baso # (Auto) (0.0-0.3) x10-3/uL Sodium (135-145) mmol/L Potassium (3.5-5.3) mmol/L Chloride (100-110) mmol/L Carbon Dioxide (21-32) mmol/L BUN (7-18) mg/dL Creatinine (0.70-1.30) mg/dL Est Cr Clr Drug Dosing mL/min Estimated GFR (MDRD) (>60) BUN/Creatinine Ratio (9-20) Glucose (80-116) mg/dL Calcium (8.6-10.2) mg/dL Total Bilirubin (0.1-1.3) mg/dL AST (5-25) IU/L ALT (12-36) U/L Alkaline Phosphatase (56-112) IU/L Troponin I 9.1 (4.0-60.3) pg/mL C-Reactive Protein 0.9 (0.5-0.9) mg/dL Total Protein (6.0-8.0) g/dL Albumin (3.2-4.6) g/dL Globulin g/dL Albumin/Globulin Ratio Lipase 112 (73-393) U/L Urine Color (YELLOW) Urine Appearance (CLEAR) Urine pH (5.0-6.5) Ur Specific [place] (1.010-1.025) Urine Protein (NEGATIVE) mg/dL Urine Glucose (UA) (NORMAL) mg/dL Urine Ketones (NEGATIVE) mg/dL Urine Occult Blood (NEGATIVE) Urine Nitrite (NEGATIVE) Urine Bilirubin (NEGATIVE) Urine Urobilinogen (NEGATIVE) mg/dL Ur Leukocyte Esterase (NEGATIVE) Urine RBC (0-5) Urine WBC (0-5) Ur Squamous Epith Cells (NS,R,O) Urine Bacteria (NS) Meds: Medications Generic Name Dose Route Start Last Admin Trade Name Freq PRN Reason Stop Dose Admin Sodium Chloride 1,000 mls @ 999 mls/hr 08/06/20 06:17 Normal Saline IV 08/06/20 07:17 .BOLUS ONE - Re-Assessments/Exams Free Text/Narrative Re-Assessment/Exam: 08/06/20 07:06 labs reviewed, CRP 0.9 and ULN with no comparison, BUN/creat 24/1.0 with baseline 11/0.9, u/a with 15 mg/dk ketones CT abd/pelvis with IV contrast weith no acute changes, severe diffuse dive rticulosis noted without CT evidence of inflammatory change, appendix wnl early diverticulitis likely given prior hx, hx, PE and borderline inc'd CRP no constipation on CT will empirically tx with cipro and metronidazole, pt and in agreement, still with pain 07/20, "minimal" pt says Departure - Departure Time of Disposition: 07:08 Disposition: DC/Tfer to Other 70 Condition: Good Clinical Impression: Left upper quadrant abdominal pain, Diverticulosis, Dehydration, Acute renal insufficiency, Ketonuria - Discharge Information *PRESCRIPTION DRUG MONITORING PROGRAM REVIEWED*: Not Applicable *COPY OF PRESCRIPTION DRUG MONITORING REPORT IN PATIENT DOMINIC: Not Applicable Prescriptions: Ciprofloxacin HCl [Cipro] 500 mg PO BID #13 tablet metroNIDAZOLE [Flagyl] 500 mg PO BID #13 tab Instructions: Diverticulitis, Rehydration, Adult Referrals: Roque Manzo MD [Primary Care Provider] - Forms: ED Department Discharge Additional Instructions: For possible infection, take metronidazole 500 mg 1 tab 2 times a day for 1 week. For possible infection, take ciprofloxacin 500 mg 1 tab 2 times a day for 1 week. For inflammation, take acetaminophen 500 mg 2 tabs 4 times a day for 2 days, longer if needed. Increase fluids. May continue current diet. See your doctor in one week. However, return to the ED if you feel worse or develop additional symptoms. Sepsis Event Note (ED) - Focused Exam Vital Signs: Vital Signs Temp Pulse Resp BP Pulse Ox 08/06/20 05:20 36.7 C 63 16 109/64 98 - My Orders Last 24 Hours: My Active Orders 08/06/20 05:55 Abdomen Pelvis wo Cont [CT] Stat 08/06/20 06:17 Sodium Chloride 0.9% [Normal Saline] 1,000 ml IV .BOLUS - Assessment/Plan Last 24 Hours: My Active Orders 08/06/20 05:55 Abdomen Pelvis wo Cont [CT] Stat 08/06/20 06:17 Sodium Chloride 0.9% [Normal Saline] 1,000 ml IV .BOLUS
[2020-08-06] MEDS ORDERED: Ciprofloxacin 500 MG Tab PO ONE (07:13)
[2020-08-06] MEDS ORDERED: metroNIDAZOLE 500 MG Tab PO ONE (07:13)
== END 2020-08-06 07:38 | disposition other institution (70) ==
LOC: FB.ED 05:09
DX: K57.30 Diverticulosis of large intestine without perforation or abscess without bleeding (principal); E86.0 Dehydration; N28.9 Disorder of kidney and ureter, unspecified; R82.4 Acetonuria; K21.9 Gastro-esophageal reflux disease without esophagitis; M19.90 Unspecified osteoarthritis, unspecified site; N42.9 Disorder of prostate, unspecified; E66.9 Obesity, unspecified; Z68.34 Body mass index [BMI] 34.0-34.9, adult; Z79.82 Long term (current) use of aspirin; Z79.899 Other long term (current) drug therapy
CPT/HCPCS: 36415; 74176; 80053; 81001; 83690; 84484; 85025; 86140; 99284; 99284-25; A9270-GY; J7030

== ENCOUNTER 2020-08-08 15:10 | Emergency (ER) | payer MEDICARE, BC ==
[2020-08-08] MEDS ORDERED: Sodium Chloride 0.9% 1,000 ML IV ONE (15:13)
[2020-08-08] MEDS ORDERED: Nitroglycerin 0.4 MG Tab.SL SL ONE (15:46)
--- NOTE | 2020-08-08 15:54 | EDM.PDOC ---
ED HPI GENERAL MEDICAL PROBLEM - General Stated Complaint: HEART Time Seen by Provider: 08/08/20 15:10 Source of Information: Reports: Patient History Limitations: Reports: No Limitations - History of Present Illness INITIAL COMMENTS - FREE TEXT/NARRATIVE: c/o left sided CP x 48h pt seen in ED 60h ago, he woke with LUQ pain 5/10 that dec'd to 2/10 after Tyl x 2 by the time he arrived to ED, his PE was neg, trop was neg, WBC/diff neg, CRP 0.9 CT abd/pelvis with IV contrast with neg for acute problem, extensive diverticulosis, as CRP was borderline high and hx and exam were c/w diverticulitis, pt empirically tx'ed with cipro and flagyl x 7d pt saw Dr Payan in f/u today, however pain has now moved into the chest, is pleuritic at times and is not better, still ranges 2-5/10, he slept well last n ight altho woke at 4a again with inc'd CP, did not sleep well at all 2 nites d/t pain Dr Payan gave him GI cocktail today in the office that did not help, EKG in office is without acute or ST changes, pt sent here NTG SL x 1 here did not change pain pt reports he has been lifting weights x 2w, doing arm curls with 10 lb weights in each hand, doing UE abduction with 5 lb weights, pt does have 2+ tenderness at the L 3rd ICS that is new, winces with palpation trop today again neg, however CRP has inc'd 0.9 to 5.3 in 3 days c/w pleurisy vs even COVID (altho WBC is not dec'd and d-dimer is not inc'd), COVID swab pending Chest Pain Score (Numeric/FACES): 5 - Related Data Allergies Allergy/AdvReac Type Severity Reaction Status Date / Time Iodinated Contrast Media Allergy Edema Verified 08/08/20 16:10 Home Meds: Home Meds Cholecalciferol (Vitamin D3) [Vitamin D3] 1,000 units PO DAILY 03/10/18 [History] Finasteride 5 mg PO DAILY 03/10/18 [History] Pantoprazole [ProTONIX] 40 mg PO DAILY 03/10/18 [History] Tamsulosin HCl 0.4 mg PO BEDTIME 03/10/18 [History] Clotrimazole/Betamethasone Dip [Lotrisone Cream] 1 applic TOP BID PRN 05/20/18 [History] Dextran/Hypromellose/Glycerin [Genteal Tears 0.1%-0.2%-0.3%] 1 drop EYEBOTH Q6H PRN 05/20/18 [History] Psyllium [Metamucil SF] 1 tbs PO DAILY PRN 05/20/18 [History] Sodium Chloride [Saline Nasal [place]] 2 spray NASBOTH Q2H PRN 05/20/18 [History] Calcium Carb, Citrate/Vit D3 [Citracal + D ER] 1 tab PO DAILY 08/08/20 [History] Ciprofloxacin HCl [Cipro] 500 mg PO BID 08/08/20 [History] Ketorolac Tromethamine 1 drop EYELF BID 08/08/20 [History] metroNIDAZOLE [Flagyl] 500 mg PO BID 08/08/20 [History] predniSONE 20 mg PO DAILY #6 tab 08/08/20 [Rx] Past Medical History HEENT History: Reports: Cataract, Impaired Vision Cardiovascular History: Reports: High Cholesterol Respiratory History: Reports: Sleep Apnea Gastrointestinal History: Reports: Diverticulosis, GERD, GI Bleed Genitourinary History: Reports: Prostate Disorder, Other (See Below) Other Genitourinary History: URINARY FREQUESNCY AND INCOMPLETE BLADDER EMPTYING, LUTS Musculoskeletal History: Reports: Arthritis, Neck Pain, Chronic, Osteoarthritis Neurological History: Reports: None Psychiatric History: Reports: None Endocrine/Metabolic History: Reports: Obesity/BMI 30+ Hematologic History: Reports: Anemia, Blood Transfusion(s) Immunologic History: Reports: None Oncologic (Cancer) History: Reports: None Dermatologic History: Reports: None - Infectious Disease History Infectious Disease History: Reports: C-Difficile, Measles, Mumps - Past Surgical History Head Surgeries/Procedures: Reports: None HEENT Surgical History: Reports: Adenoidectomy, Cataract Surgery, Eye Surgery, Tonsillectomy Other HEENT Surgeries/Procedures: bilat cataract, L VITRECTOMY Cardiovascular Surgical History: Reports: None Respiratory Surgical History: Reports: None GI Surgical History: Reports: Appendectomy, Cholecystectomy, Colonoscopy, EGD Male Surgical History: Reports: Vasectomy Endocrine Surgical History: Reports: None Neurological Surgical History: Reports: None Musculoskeletal Surgical History: Reports: Arthroscopic Procedure, Knee Replacement, Shoulder Surgery Other Musculoskeletal Surgeries/Procedures:: R shoulder rotar cuff, R knee replacement Oncologic Surgical History: Reports: None Dermatological Surgical History: Reports: None Social & Family History - Family History Family Medical History: No Pertinent Family History - Caffeine Use Caffeine Use: Reports: Coffee, Soda, Tea Other Caffeine Use: 1 and half soda daily ED ROS GENERAL - Review of Systems Review Of Systems: See Below Constitutional: Reports: No Symptoms. Denies: Fever, Chills, Malaise HEENT: Reports: No Symptoms Respiratory: Reports: Shortness of Breath, Pleuritic Chest Pain, Other (thinks he may have slight SOB). Denies: Wheezing, Cough Cardiovascular: Reports: No Symptoms Endocrine: Reports: No Symptoms GI/Abdominal: Reports: No Symptoms. Denies: Nausea, Vomiting : Reports: No Symptoms Musculoskeletal: Reports: No Symptoms Skin: Reports: No Symptoms Neurological: Reports: No Symptoms Psychiatric: Reports: No Symptoms Hematologic/Lymphatic: Reports: No Symptoms Immunologic: Reports: No Symptoms ED EXAM, GENERAL - Physical Exam Exam: See Below Exam Limited By: No Limitations General Appearance: Alert, WD/WN, No Apparent Distress, Other (very pleasant, [place]) Eye Exam: Bilateral Eye: PERRL Ears: Hearing Loss Nose: Normal Inspection Throat/Mouth: Normal Inspection, Normal Voice, No Airway Compromise Head: Atraumatic, Normocephalic Neck: Normal Inspection, Supple, Non-Tender, Full Range of Motion. No: Lymphadenopathy (L) Respiratory/Chest: No Respiratory Distress, Lungs Clear, Normal Breath Sounds, No Accessory Muscle Use, Other (2+ tender localized 3rd ICS at CC junction) GI/Abdominal: Soft, Non-Tender, No Distention Back Exam: Normal Inspection, Full Range of Motion. No: CVA Tenderness (R) Extremities: Normal Inspection, Normal Range of Motion, Non-Tender, Other (1+ pretib edema b/l) Neurological: Alert, Oriented, CN II-XII Intact, Normal Cognition, Normal Gait, No Motor/Sensory Deficits Psychiatric: Normal Affect, Normal Mood Skin Exam: Warm, Dry, Intact, Normal Color, No Rash Lymphatic: No Adenopathy Course - Vital Signs Last Recorded V/S: Last Vital Signs Temp 36.6 C 08/08/20 16:18 Pulse 56 L 08/08/20 16:18 Resp 18 08/08/20 16:18 BP 115/55 L 08/08/20 16:18 Pulse Ox 98 08/08/20 16:18 - Orders/Labs/Meds Labs: Laboratory Tests 08/08/20 08/08/20 08/08/20 Range/Units 15:23 15:23 15:23 WBC 6.8 (3.2-10.1) x10-3/uL RBC 4.88 (3.90-5.90) x10(6)uL Hgb 14.1 (12.9-17.7) g/dL Hct 43.8 (38.3-50.1) % MCV 89.8 (80.8-98.7) fL MCH 28.9 (27.0-33.3) pg MCHC 32.2 (28.7-35.3) g/dL RDW 13.6 (12.4-15.0) % Plt Count 221 (117-477) x10(3)uL MPV 8.0 (6.7-11.0) fL Neut % (Auto) 72.3 H (40.3-71.8) % Lymph % (Auto) 14.9 L (15.8-45.3) % Pepin % (Auto) 9.6 (5.5-15.2) % Eos % (Auto) 2.7 (0.1-6.8) % Baso % (Auto) 0.5 (0.3-3.8) % Neut # (Auto) 4.9 (1.7-6.9) x10-3/uL Lymph # (Auto) 1.0 (0.5-4.5) x10-3/uL Pepin # (Auto) 0.7 (0.0-1.2) x10-3/uL Eos # (Auto) 0.2 (0.0-0.6) x10-3/uL Baso # (Auto) 0.0 (0.0-0.3) x10-3/uL D-Dimer, Quantitative 0.53 (0.0-0.59) mg/LFEU Sodium 139 (135-145) mmol/L Potassium 4.0 (3.5-5.3) mmol/L Chloride 102 (100-110) mmol/L Carbon Dioxide 31 (21-32) mmol/L BUN 21 H (7-18) mg/dL Creatinine 1.1 (0.70-1.30) mg/dL Est Cr Clr Drug Dosing 52.53 mL/min Estimated GFR (MDRD) > 60 (>60) BUN/Creatinine Ratio 19.1 (9-20) Glucose 107 (80-116) mg/dL Calcium 9.3 (8.6-10.2) mg/dL Total Bilirubin 0.7 (0.1-1.3) mg/dL AST 17 D (5-25) IU/L ALT 32 D (12-36) U/L Alkaline Phosphatase 48 L (56-112) IU/L Troponin I (4.0-60.3) pg/mL C-Reactive Protein (0.5-0.9) mg/dL NT-Pro-B Natriuret Pep (<=450) pg/mL Total Protein 7.2 (6.0-8.0) g/dL Albumin 3.5 (3.2-4.6) g/dL Globulin 3.7 g/dL Albumin/Globulin Ratio 1.0 Lipase (73-393) U/L SARS-CoV-2 RNA (COSMO) (NEGATIVE) 08/08/20 08/08/20 08/08/20 Range/Units 15:23 15:30 16:00 WBC (3.2-10.1) x10-3/uL RBC (3.90-5.90) x10(6)uL Hgb (12.9-17.7) g/dL Hct (38.3-50.1) % MCV (80.8-98.7) fL MCH (27.0-33.3) pg MCHC (28.7-35.3) g/dL RDW (12.4-15.0) % Plt Count (117-477) x10(3)uL MPV (6.7-11.0) fL Neut % (Auto) (40.3-71.8) % Lymph % (Auto) (15.8-45.3) % Pepin % (Auto) (5.5-15.2) % Eos % (Auto) (0.1-6.8) % Baso % (Auto) (0.3-3.8) % Neut # (Auto) (1.7-6.9) x10-3/uL Lymph # (Auto) (0.5-4.5) x10-3/uL Pepin # (Auto) (0.0-1.2) x10-3/uL Eos # (Auto) (0.0-0.6) x10-3/uL Baso # (Auto) (0.0-0.3) x10-3/uL D-Dimer, Quantitative (0.0-0.59) mg/LFEU Sodium (135-145) mmol/L Potassium (3.5-5.3) mmol/L Chloride (100-110) mmol/L Carbon Dioxide (21-32) mmol/L BUN (7-18) mg/dL Creatinine (0.70-1.30) mg/dL Est Cr Clr Drug Dosing mL/min Estimated GFR (MDRD) (>60) BUN/Creatinine Ratio (9-20) Glucose (80-116) mg/dL Calcium (8.6-10.2) mg/dL Total Bilirubin (0.1-1.3) mg/dL AST (5-25) IU/L ALT (12-36) U/L Alkaline Phosphatase (56-112) IU/L Troponin I 7.2 (4.0-60.3) pg/mL C-Reactive Protein 5.3 H* (0.5-0.9) mg/dL NT-Pro-B Natriuret Pep 36 (<=450) pg/mL Total Protein (6.0-8.0) g/dL Albumin (3.2-4.6) g/dL Globulin g/dL Albumin/Globulin Ratio Lipase 112 (73-393) U/L SARS-CoV-2 RNA (COSMO) Negative (NEGATIVE) Meds: Medications Discontinued Medications Generic Name Dose Route Start Last Admin Trade Name Freq PRN Reason Stop Dose Admin Acetaminophen 1,000 mg 08/08/20 16:08 08/08/20 16:12 Tylenol Extra Strength PO 08/08/20 16:09 1,000 mg ONETIME ONE Administration Sodium Chloride 1,000 mls @ 999 mls/hr 08/08/20 15:13 08/08/20 15:32 Normal Saline IV 08/08/20 16:13 999 mls/hr .BOLUS ONE Administration Ketorolac Tromethamine 30 mg 08/08/20 16:08 08/08/20 16:13 Toradol IVPUSH 08/08/20 16:09 30 mg ONETIME ONE Administration Methylprednisolone Sodium Succinate 125 mg 08/08/20 16:08 08/08/20 16:17 Solu-Medrol IVPUSH 08/08/20 16:09 125 mg ONETIME ONE Administration Nitroglycerin 0.4 mg 08/08/20 15:46 08/08/20 16:00 Nitrostat SL 08/08/20 15:47 0.4 mg ONETIME ONE Administration - Re-Assessments/Exams Free Text/Narrative Re-Assessment/Exam: 08/09/20 11:34 Dr Payan notified of test results. Pt with almost identical labs from last visit with neg trop x 2, except for inc'd CRP 0.9 to 5.3. CxR d/w Dr Khoury who identified markings in LLL c/w possible pneumonia vs sc arring (last CxR 2012). Given inc'd CRP, pneumonia is a possibility and pt advised to continue cipro and Flagyl. Pleuritis also a possibility given pleuritic CP in the upper chest. In addition, pt may have a separate issue with costochondritis at 3rd rib where he had 1-2+ tender on palpation d/t weight lifting in the past 2w. However, costochondritis should not account for inc'd CRP. Departure - Departure Time of Disposition: 17:42 Disposition: Home, Self-Care 01 Condition: Good Clinical Impression: Left lower lobe pneumonia, Pleurisy, Elevated C-reactive protein (CRP) Prescriptions: predniSONE 20 mg PO DAILY #6 tab Instructions: Pleurisy, Community-Acquired Pneumonia, Adult Referrals: Darrick Payan MD [Primary Care Provider] - Forms: ED Department Discharge Additional Instructions: For infection, continue the ciprofloxacin and metronidazole. For inflammation, take acetaminophen 500 mg 2 tabs 4 times a day for 7 days. For inflammation, take prednisone 20 mg 1 tab daily for 6 days beginning tomorrow. Take a break from upper extremity weight lifting this week. Continue your diet. See Dr Payan in 3-4 days before the weekend. Return to Emergency Department if you feel worse or develop new symptoms. Sepsis Event Note (ED) - Evaluation Sepsis Screening Result: No Definite Risk
[2020-08-08] MEDS ORDERED: methylPREDNISolone Sodium Succinate 125 MG/2 ML SDV IVPUSH ONE (16:08)
[2020-08-08] MEDS ORDERED: Ketorolac 30 MG/ML SDV IVPUSH ONE (16:08)
[2020-08-08] MEDS ORDERED: Acetaminophen 500 MG Tab PO ONE (16:08)
--- NOTE | 2020-08-08 17:50 | CR ---
INDICATION: Pleuritic left sided chest pain x two days, increased CRP, COVID negative. CHEST TWO VIEWS: PA and lateral views of the chest were obtained 08/08/2020 and compared with 07/01/2012 and 03/23/2011. Evidence of exogenous obesity is noted. The aorta is calcified in the arch area. Hypertrophic degenerative change is noted in the mid thoracic spine bridging the disc spaces. The heart appears enlarged in the area of the left ventricle, but appeared fairly normal transversely. Slightly heavy markings at the right costophrenic angle and left costophrenic angle noted, making it difficult to exclude areas of minimal patchy pneumonia, especially at the left lung base and costophrenic angle-lower lobe. No gross consolidating pneumonia or effusion was seen. IMPRESSION: 1. Difficult to exclude patchy bronchopneumonia at the lung bases, especially on the left. 2. 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 MTDD
== END 2020-08-08 18:05 | disposition home or self-care (01) ==
LOC: FB.ED 15:10
DX: J18.9 Pneumonia, unspecified organism (principal); R09.1 Pleurisy; R79.82 Elevated C-reactive protein (CRP); K21.9 Gastro-esophageal reflux disease without esophagitis; E66.9 Obesity, unspecified; Z68.20 Body mass index [BMI] 20.0-20.9, adult; Z91.041 Radiographic dye allergy status; Z79.899 Other long term (current) drug therapy; Z20.822 Contact with and (suspected) exposure to COVID-19
CPT/HCPCS: 36415; 71046; 80053; 83690; 83880; 84484; 85025; 85379; 86140; 96374; 96375; 99285-25; A9270-GY; J1885; J2930; J7030; U0002

== ENCOUNTER 2021-03-25 23:09 | Emergency (ER) | payer MEDICARE, BC ==
[2021-03-25] MEDS ORDERED: predniSONE 10 MG Tab PO ONE (23:10)
--- NOTE | 2021-03-25 23:22 | EDM.PDOC ---
ED HPI GENERAL MEDICAL PROBLEM - General Time Seen by Provider: 03/25/21 23:20 Source of Information: Reports: Patient History Limitations: Reports: No Limitations - History of Present Illness INITIAL COMMENTS - FREE TEXT/NARRATIVE: Yariel complains of sudden LLQ abdominal pain,characteristic of acute diverticulitis,that he has had before.Associated with constipation.No symtpoms Left Lower Abdomen Pain Score (Numeric/FACES): 0 - Related Data Allergies Allergy/AdvReac Type Severity Reaction Status Date / Time Iodinated Contrast Media Allergy Edema Verified 08/08/20 16:10 Home Meds: Home Meds Cholecalciferol (Vitamin D3) [Vitamin D3] 1,000 units PO DAILY 03/10/18 [History] Finasteride 5 mg PO DAILY 03/10/18 [History] Pantoprazole [ProTONIX] 40 mg PO DAILY 03/10/18 [History] Tamsulosin HCl 0.4 mg PO BEDTIME 03/10/18 [History] Clotrimazole/Betamethasone Dip [Lotrisone Cream] 1 applic TOP BID PRN 05/20/18 [History] Dextran/Hypromellose/Glycerin [Genteal Tears 0.1%-0.2%-0.3%] 1 drop EYEBOTH Q6H PRN 05/20/18 [History] Psyllium [Metamucil SF] 1 tbs PO DAILY PRN 05/20/18 [History] Sodium Chloride [Saline Nasal [place]] 2 spray NASBOTH Q2H PRN 05/20/18 [History] Calcium Carb, Citrate/Vit D3 [Citracal + D ER] 1 tab PO DAILY 08/08/20 [History] Ciprofloxacin HCl [Cipro] 500 mg PO BID 08/08/20 [History] Ketorolac Tromethamine 1 drop EYELF BID 08/08/20 [History] metroNIDAZOLE [Flagyl] 500 mg PO BID 08/08/20 [History] predniSONE 20 mg PO DAILY #6 tab 08/08/20 [Rx] metroNIDAZOLE [Flagyl] 500 mg PO Q8H #30 tab 03/26/21 [Rx] Past Medical History HEENT History: Reports: Cataract, Impaired Vision Cardiovascular History: Reports: High Cholesterol Respiratory History: Reports: Sleep Apnea Gastrointestinal History: Reports: Diverticulosis, GERD, GI Bleed Genitourinary History: Reports: Prostate Disorder, Other (See Below) Other Genitourinary History: URINARY FREQUESNCY AND INCOMPLETE BLADDER EMPTYING, LUTS Musculoskeletal History: Reports: Arthritis, Neck Pain, Chronic, Osteoarthritis Neurological History: Reports: None Psychiatric History: Reports: None Endocrine/Metabolic History: Reports: Obesity/BMI 30+ Hematologic History: Reports: Anemia, Blood Transfusion(s) Immunologic History: Reports: None Oncologic (Cancer) History: Reports: None Dermatologic History: Reports: None - Infectious Disease History Infectious Disease History: Reports: C-Difficile, Measles, Mumps - Past Surgical History Head Surgeries/Procedures: Reports: None HEENT Surgical History: Reports: Adenoidectomy, Cataract Surgery, Eye Surgery, Tonsillectomy Other HEENT Surgeries/Procedures: bilat cataract, L VITRECTOMY Cardiovascular Surgical History: Reports: None Respiratory Surgical History: Reports: None GI Surgical History: Reports: Appendectomy, Cholecystectomy, Colonoscopy, EGD Male Surgical History: Reports: Vasectomy Endocrine Surgical History: Reports: None Neurological Surgical History: Reports: None Musculoskeletal Surgical History: Reports: Arthroscopic Procedure, Knee Replacement, Shoulder Surgery Other Musculoskeletal Surgeries/Procedures:: R shoulder rotar cuff, R knee replacement Oncologic Surgical History: Reports: None Dermatological Surgical History: Reports: None Social & Family History - Family History Family Medical History: No Pertinent Family History - Caffeine Use Caffeine Use: Reports: Coffee Other Caffeine Use: 1 and half soda daily ED ROS GENERAL - Review of Systems Review Of Systems: Comprehensive ROS is negative, except as noted in HPI. ED EXAM, GI/ABD - Physical Exam Exam: See Below Exam Limited By: No Limitations General Appearance: Alert Respiratory/Chest: No Respiratory Distress Cardiovascular: Normal Peripheral Pulses GI/Abdominal Exam: Soft, Distended, Tender Extremities: Normal Inspection Neurological: Alert Psychiatric: Normal Affect Course - Vital Signs Last Recorded V/S: Last Vital Signs Temp 98.2 F 03/25/21 23:12 Pulse 74 03/25/21 23:12 Resp 16 03/25/21 23:12 BP 131/64 03/25/21 23:12 Pulse Ox 96 03/25/21 23:12 - Orders/Labs/Meds Labs: Laboratory Tests 03/25/21 03/25/21 03/25/21 Range/Units 23:30 23:30 23:30 WBC 8.8 (3.2-10.1) x10-3/uL RBC 4.61 (3.90-5.90) x10(6)uL Hgb 13.5 (12.9-17.7) g/dL Hct 40.9 (38.3-50.1) % MCV 88.6 (80.8-98.7) fL MCH 29.3 (27.0-33.3) pg MCHC 33.1 (28.7-35.3) g/dL RDW 13.4 (12.4-15.0) % Plt Count 240 (117-477) x10(3)uL MPV 6.7 (6.7-11.0) fL Neut % (Auto) 67.6 (40.3-71.8) % Lymph % (Auto) 17.1 (15.8-45.3) % [place] % (Auto) 9.3 (5.5-15.2) % Eos % (Auto) 5.4 (0.1-6.8) % Baso % (Auto) 0.6 (0.3-3.8) % Neut # (Auto) 5.9 (1.7-6.9) x10-3/uL Lymph # (Auto) 1.5 (0.5-4.5) x10-3/uL [place] # (Auto) 0.8 (0.0-1.2) x10-3/uL Eos # (Auto) 0.5 (0.0-0.6) x10-3/uL Baso # (Auto) 0.0 (0.0-0.3) x10-3/uL Sodium 142 (135-145) mmol/L Potassium 4.4 (3.5-5.3) mmol/L Chloride 106 (100-110) mmol/L Carbon Dioxide 31 (21-32) mmol/L BUN 25 H (7-18) mg/dL Creatinine 1.1 (0.70-1.30) mg/dL Est Cr Clr Drug Dosing 58.95 mL/min Estimated GFR (MDRD) > 60 (>60) BUN/Creatinine Ratio 22.7 H (9-20) Glucose 103 (80-116) mg/dL Calcium 9.1 (8.6-10.2) mg/dL Total Bilirubin 0.7 (0.1-1.3) mg/dL AST 8 D (5-25) IU/L ALT 18 D (12-36) U/L Alkaline Phosphatase 69 (56-112) IU/L C-Reactive Protein 2.0 H (0.5-0.9) mg/dL Total Protein 6.8 (6.0-8.0) g/dL Albumin 3.2 (3.2-4.6) g/dL Globulin 3.6 g/dL Albumin/Globulin Ratio 0.9 Urine Color (YELLOW) Urine Appearance (CLEAR) Urine pH (5.0-6.5) Ur Specific [place] (1.010-1.025) Urine Protein (NEGATIVE) mg/dL Urine Glucose (UA) (NORMAL) mg/dL Urine Ketones (NEGATIVE) mg/dL Urine Occult Blood (NEGATIVE) Urine Nitrite (NEGATIVE) Urine Bilirubin (NEGATIVE) Urine Urobilinogen (NEGATIVE) mg/dL Ur Leukocyte Esterase (NEGATIVE) Urine RBC (0-5) Urine WBC (0-5) Ur Squamous Epith Cells (NS,R,O) Urine Bacteria (NS) 03/25/21 Range/Units 23:40 WBC (3.2-10.1) x10-3/uL RBC (3.90-5.90) x10(6)uL Hgb (12.9-17.7) g/dL Hct (38.3-50.1) % MCV (80.8-98.7) fL MCH (27.0-33.3) pg MCHC (28.7-35.3) g/dL RDW (12.4-15.0) % Plt Count (117-477) x10(3)uL MPV (6.7-11.0) fL Neut % (Auto) (40.3-71.8) % Lymph % (Auto) (15.8-45.3) % [place] % (Auto) (5.5-15.2) % Eos % (Auto) (0.1-6.8) % Baso % (Auto) (0.3-3.8) % Neut # (Auto) (1.7-6.9) x10-3/uL Lymph # (Auto) (0.5-4.5) x10-3/uL [place] # (Auto) (0.0-1.2) x10-3/uL Eos # (Auto) (0.0-0.6) x10-3/uL Baso # (Auto) (0.0-0.3) x10-3/uL Sodium (135-145) mmol/L Potassium (3.5-5.3) mmol/L Chloride (100-110) mmol/L Carbon Dioxide (21-32) mmol/L BUN (7-18) mg/dL Creatinine (0.70-1.30) mg/dL Est Cr Clr Drug Dosing mL/min Estimated GFR (MDRD) (>60) BUN/Creatinine Ratio (9-20) Glucose (80-116) mg/dL Calcium (8.6-10.2) mg/dL Total Bilirubin (0.1-1.3) mg/dL AST (5-25) IU/L ALT (12-36) U/L Alkaline Phosphatase (56-112) IU/L C-Reactive Protein (0.5-0.9) mg/dL Total Protein (6.0-8.0) g/dL Albumin (3.2-4.6) g/dL Globulin g/dL Albumin/Globulin Ratio Urine Color Yellow (YELLOW) Urine Appearance Clear (CLEAR) Urine pH 8.0 H (5.0-6.5) Ur Specific [place] 1.010 (1.010-1.025) Urine Protein Negative (NEGATIVE) mg/dL Urine Glucose (UA) Normal (NORMAL) mg/dL Urine Ketones Negative (NEGATIVE) mg/dL Urine Occult Blood Negative (NEGATIVE) Urine Nitrite Negative (NEGATIVE) Urine Bilirubin Negative (NEGATIVE) Urine Urobilinogen Normal (NEGATIVE) mg/dL Ur Leukocyte Esterase Negative (NEGATIVE) Urine RBC 0-5 (0-5) Urine WBC 0-5 (0-5) Ur Squamous Epith Cells Occasional (NS,R,O) Urine Bacteria Rare H (NS) Meds: Medications Discontinued Medications Generic Name Dose Route Start Last Admin Trade Name Freq PRN Reason Stop Dose Admin Metronidazole 500 mg 03/26/21 00:27 03/26/21 00:44 Metronidazole 500 Mg Tab PO 03/26/21 00:28 500 mg ONETIME ONE Administration Morphine Sulfate 10 mg 03/26/21 00:26 03/26/21 00:44 Morphine 10 Mg/Ml Sdv IM 03/26/21 00:27 10 mg ONETIME ONE Administration Ondansetron HCl 4 mg 03/26/21 00:26 03/26/21 00:45 Ondansetron 4 Mg/2 Ml Sdv IM 03/26/21 00:27 4 mg ONETIME ONE Administration Prednisone 80 mg 03/25/21 23:10 Prednisone 10 Mg Tab PO 03/25/21 23:11 .STK-MED ONE Departure - Departure Time of Disposition: 20:23 Disposition: Home, Self-Care 01 Condition: Good Clinical Impression: Acute diverticulitis - Discharge Information Prescriptions: metroNIDAZOLE [Flagyl] 500 mg PO Q8H #30 tab Instructions: Diverticulitis, [id number] Referrals: PCP,None [Primary Care Provider] - Forms: ED Department Discharge - Problem List & Annotations (1) Acute diverticulitis SNOMED Code(s): 362425410 Code(s): K57.92 - DVTRCLI OF INTEST, PART UNSP, W/O PERF OR ABSCESS W/O BLEED Status: Acute Annotation/Comment:: admit to med-surg. - Problem List Review Problem List Initiated/Reviewed/Updated: Yes - Assessment/Plan Plan: DC home on oral ABX
[2021-03-26] MEDS ORDERED: Morphine 10 MG/ML SDV IM ONE (00:26)
[2021-03-26] MEDS ORDERED: Ondansetron 4 MG/2 ML SDV IM ONE (00:26)
[2021-03-26] MEDS ORDERED: metroNIDAZOLE 500 MG Tab PO ONE (00:27)
== END 2021-03-26 01:15 | disposition home or self-care (01) ==
LOC: FB.ED 23:09
DX: K57.32 Diverticulitis of large intestine without perforation or abscess without bleeding (principal); E78.00 Pure hypercholesterolemia, unspecified; K21.9 Gastro-esophageal reflux disease without esophagitis; E66.9 Obesity, unspecified; Z68.31 Body mass index [BMI] 31.0-31.9, adult; Z91.041 Radiographic dye allergy status
CPT/HCPCS: 36415; 74176; 80053; 81001; 85025; 86140; 96372; 99284-25; A9270-GY; J2270; J2405; J7512

== ENCOUNTER 2021-07-10 23:39 | Emergency (ER) | payer MEDICARE, BC ==
[2021-07-10] MEDS ORDERED: Sodium Chloride 0.9% 1,000 ML IV ONE ×2 (23:45→23:48)
[2021-07-11] MEDS ORDERED: Iopamidol 755 Mg/ML 100 ML Bottle IV ONE (00:46)
[2021-07-11] MEDS ORDERED: Sodium Chloride 0.9% 1,000 ML IV SCH (02:30)
== END 2021-07-11 07:45 | disposition home or self-care (01) ==
LOC: FB.ED 23:39
DX: K92.2 Gastrointestinal hemorrhage, unspecified (principal); K92.1 Melena; D64.9 Anemia, unspecified; R79.89 Other specified abnormal findings of blood chemistry; I44.4 Left anterior fascicular block; K21.9 Gastro-esophageal reflux disease without esophagitis; E66.9 Obesity, unspecified; Z68.33 Body mass index [BMI] 33.0-33.9, adult; Z91.041 Radiographic dye allergy status; Z79.899 Other long term (current) drug therapy; Z20.822 Contact with and (suspected) exposure to COVID-19
CPT/HCPCS: 36415; 74176; 80053; 81001; 84484; 85014; 85018; 85025; 85610; 86140; 86850; 86900; 86901; 93005; 99285-25; J7030; U0002

== ENCOUNTER 2023-02-08 20:15 | Emergency (ER) | payer MEDICARE, BC ==
[2023-02-08] MEDS ORDERED: Sodium Chloride 0.9% 10 ML Syringe FLUSH PRN (21:27)
[2023-02-08 21:49] LABS: BLOOD UREA NITROGEN,BUN 24 mg/dL (7-18); CALCIUM 9.4 mg/dL (8.6-10.2); CARBON DIOXIDE,CO2 29 mmol/L (21-32); CHLORIDE,CL 104 mmol/L (100-110); ESTIMATED GFR 76 mL/min (>60); GLUCOSE RANDOM 124 mg/dL (80-116); POTASSIUM,K 4.2 mmol/L (3.5-5.3); SODIUM,NA 140 mmol/L (135-145)
[2023-02-08 21:51] LABS: BASOPHILS PERCENT AUTO 0.4 % (0.3-3.8); EOSINOPHILS ABSOLUTE AUTO 0.3 x10-3/uL (0.0-0.6); EOSINOPHILS PERCENT AUTO 2.6 % (0.1-6.8); HEMATOCRIT 43.6 % (38.3-50.1); HEMOGLOBIN 15.1 g/dL (12.9-17.7); LYMPHOCYTES ABSOLUTE AUTO 1.5 x10-3/uL (0.5-4.5); LYMPHOCYTES PERCENT AUTO 15.2 % (15.8-45.3); MEAN CORPUSCULAR HEMOGLOBIN 30.4 pg (27.0-33.3); MEAN CORPUSCULAR HGB CONC 34.5 g/dL (28.7-35.3); MEAN CORPUSCULAR VOLUME 87.9 fL (80.8-98.7); MEAN PLATELET VOLUME 7.4 fL (6.7-11.0); MONOCYTES ABSOLUTE AUTO 0.8 x10-3/uL (0.0-1.2); MONOCYTES PERCENT AUTO 7.7 % (5.5-15.2); NEUTROPHILS ABSOLUTE AUTO 7.5 x10-3/uL (1.7-6.9); NEUTROPHILS PERCENT AUTO 74.1 % (40.3-71.8); PLATELET COUNT,PLT 238 x10(3)uL (117-477); RED BLOOD CELL COUNT 4.96 x10(6)uL (3.90-5.90); RED CELL DISTRIBUTION WIDTH 13.5 % (12.4-15.0); WHITE BLOOD CELL COUNT,WBC 10.1 x10-3/uL (3.2-10.1)
[2023-02-08 21:55] LABS: ALANINE AMINOTRANSFERASE,ALT 22 U/L (12-36); ALBUMIN 3.6 g/dL (3.2-4.6); ALKALINE PHOSPHATASE 67 IU/L (56-112); AMYLASE 67 U/L (25-115); ASPARTATE AMNIOTRANSFERASE,AST 15 IU/L (5-25); BILIRUBIN TOTAL 0.5 mg/dL (0.1-1.3); PROTEIN TOTAL,TP 7.3 g/dL (6.0-8.0)
[2023-02-08] MEDS ORDERED: metroNIDAZOLE 500 MG Tab PO STA (22:51)
[2023-02-08] MEDS ORDERED: Ciprofloxacin 500 MG Tab PO STA (22:51)
[2023-02-08 23:28] LABS: BILIRUBIN,URINE NEGATIVE (NEGATIVE); GLUCOSE,URINE NORMAL (NORMAL); KETONES,URINE NEGATIVE (NEGATIVE); LEUKOCYTE ESTERASE,URINE NEGATIVE (NEGATIVE); NITRITE,URINE NEGATIVE (NEGATIVE); OCCULT BLOOD,URINE NEGATIVE (NEGATIVE); PROTEIN,URINE NEGATIVE (NEGATIVE); UROBILINOGEN,URINE NORMAL (NEGATIVE)
[2023-02-08 23:30] LABS: APPEARANCE,URINE CLEAR (CLEAR); BACTERIA,URINE OCCASIONAL (NS); COLOR,URINE YELLOW (YELLOW); RBC,URINE NOT SEEN (0-5); SQUAMOUS EPITHELIAL CELLS,UR OCCASIONAL (NS,R,O); WBC,URINE 0-5 (0-5)
== END 2023-02-08 23:16 | disposition home or self-care (01) ==
LOC: FB.ED 20:15
DX: K57.32 Diverticulitis of large intestine without perforation or abscess without bleeding (principal); E78.00 Pure hypercholesterolemia, unspecified; K21.9 Gastro-esophageal reflux disease without esophagitis; E66.9 Obesity, unspecified; Z91.041 Radiographic dye allergy status; Z79.899 Other long term (current) drug therapy
CPT/HCPCS: 36415; 74176; 80053; 81001; 82150; 83690; 85025; 99284; A9270

== ENCOUNTER 2023-05-18 09:11 | Emergency (ER) | payer MEDICARE, BC ==
[2023-05-18 09:57] LABS: BILIRUBIN,URINE NEGATIVE (NEGATIVE); GLUCOSE,URINE NORMAL (NORMAL); KETONES,URINE NEGATIVE (NEGATIVE); LEUKOCYTE ESTERASE,URINE NEGATIVE (NEGATIVE); NITRITE,URINE NEGATIVE (NEGATIVE); OCCULT BLOOD,URINE NEGATIVE (NEGATIVE); PROTEIN,URINE NEGATIVE (NEGATIVE); UROBILINOGEN,URINE NORMAL (NEGATIVE)
[2023-05-18 09:59] LABS: APPEARANCE,URINE CLEAR (CLEAR); BACTERIA,URINE RARE (NS); COLOR,URINE YELLOW (YELLOW); MUCUS,URINE FEW (NS); RBC,URINE 0-5 (0-5); SQUAMOUS EPITHELIAL CELLS,UR OCCASIONAL (NS,R,O); WBC,URINE 0-5 (0-5)
[2023-05-18 10:01] LABS: BASOPHILS PERCENT AUTO 0.4 % (0.3-3.8); BLOOD UREA NITROGEN,BUN 18 mg/dL (7-18); CALCIUM 9.3 mg/dL (8.6-10.2); CARBON DIOXIDE,CO2 27 mmol/L (21-32); CHLORIDE,CL 105 mmol/L (100-110); EOSINOPHILS ABSOLUTE AUTO 0.2 x10-3/uL (0.0-0.6); EOSINOPHILS PERCENT AUTO 3.1 % (0.1-6.8); EST CRCL DRUG DOSING (CG) 62.75 mL/min; ESTIMATED GFR 76 mL/min (>60); GLUCOSE RANDOM 167 mg/dL (80-116); HEMOGLOBIN 15.4 g/dL (12.9-17.7); LYMPHOCYTES ABSOLUTE AUTO 1.1 x10-3/uL (0.5-4.5); LYMPHOCYTES PERCENT AUTO 16.2 % (15.8-45.3); MEAN CORPUSCULAR HEMOGLOBIN 30.2 pg (27.0-33.3); MEAN CORPUSCULAR HGB CONC 34.2 g/dL (28.7-35.3); MEAN CORPUSCULAR VOLUME 88.3 fL (80.8-98.7); MEAN PLATELET VOLUME 7.6 fL (6.7-11.0); MONOCYTES ABSOLUTE AUTO 0.5 x10-3/uL (0.0-1.2); MONOCYTES PERCENT AUTO 7.2 % (5.5-15.2); NEUTROPHILS ABSOLUTE AUTO 4.8 x10-3/uL (1.7-6.9); NEUTROPHILS PERCENT AUTO 73.1 % (40.3-71.8); PLATELET COUNT,PLT 262 x10(3)uL (117-477); POTASSIUM,K 4.5 mmol/L (3.5-5.3); RED CELL DISTRIBUTION WIDTH 13.3 % (12.4-15.0); SODIUM,NA 140 mmol/L (135-145); WHITE BLOOD CELL COUNT,WBC 6.5 x10-3/uL (3.2-10.1)
[2023-05-18 10:03] LABS: LIPASE 32 U/L (16-77)
[2023-05-18 10:06] LABS: A/G RATIO 0.8; ALANINE AMINOTRANSFERASE,ALT 21 U/L (12-36); ALBUMIN 3.3 g/dL (3.2-4.6); ALKALINE PHOSPHATASE 60 IU/L (56-112); ASPARTATE AMNIOTRANSFERASE,AST 11 IU/L (5-25); BILIRUBIN TOTAL 0.6 mg/dL (0.1-1.3); MAGNESIUM 1.6 mg/dL (1.8-2.5); PROTEIN TOTAL,TP 7.4 g/dL (6.0-8.0)
[2023-05-18 10:10] LABS: C-REACTIVE PROTEIN < 0.50 mg/dL (<0.50)
== END 2023-05-18 11:50 | disposition home or self-care (01) ==
LOC: FB.ED 09:11
DX: M54.6 Pain in thoracic spine (principal); R10.9 Unspecified abdominal pain; E66.9 Obesity, unspecified; K21.9 Gastro-esophageal reflux disease without esophagitis; Z91.041 Radiographic dye allergy status; Z79.899 Other long term (current) drug therapy; Z90.49 Acquired absence of other specified parts of digestive tract; Z68.35 Body mass index [BMI] 35.0-35.9, adult; Z87.891 Personal history of nicotine dependence
CPT/HCPCS: 36415; 74176; 80053; 81001; 83690; 83735; 85025; 86140; 99284

== ENCOUNTER 2024-01-07 09:19 | Emergency (ER) | payer MEDICARE, BC ==
[2024-01-07] MEDS ORDERED: Sodium Chloride 0.9% 10 ML Syringe FLUSH PRN (09:46)
[2024-01-07 10:11] LABS: BASOPHILS PERCENT AUTO 0.5 % (0.3-3.8); BLOOD UREA NITROGEN,BUN 13 mg/dL (7-18); BUN/CREATININE RATIO 11.8 (9-20); CALCIUM 9.4 mg/dL (8.6-10.2); CARBON DIOXIDE,CO2 32 mmol/L (21-32); CHLORIDE,CL 104 mmol/L (100-110); CREATININE 1.1 mg/dL (0.70-1.30); EOSINOPHILS ABSOLUTE AUTO 0.2 x10-3/uL (0.0-0.6); EOSINOPHILS PERCENT AUTO 3.4 % (0.1-6.8); EST CRCL DRUG DOSING (CG) 56.09 mL/min; ESTIMATED GFR 67 mL/min (>60); GLUCOSE RANDOM 98 mg/dL (80-116); HEMATOCRIT 45.8 % (38.3-50.1); HEMOGLOBIN 15.4 g/dL (12.9-17.7); LYMPHOCYTES PERCENT AUTO 16.5 % (15.8-45.3); MEAN CORPUSCULAR HEMOGLOBIN 29.6 pg (27.0-33.3); MEAN CORPUSCULAR HGB CONC 33.7 g/dL (28.7-35.3); MEAN CORPUSCULAR VOLUME 87.8 fL (80.8-98.7); MEAN PLATELET VOLUME 6.9 fL (6.7-11.0); MONOCYTES ABSOLUTE AUTO 0.6 x10-3/uL (0.0-1.2); MONOCYTES PERCENT AUTO 9.7 % (5.5-15.2); NEUTROPHILS ABSOLUTE AUTO 4.1 x10-3/uL (1.7-6.9); NEUTROPHILS PERCENT AUTO 69.9 % (40.3-71.8); PLATELET COUNT,PLT 235 x10(3)uL (117-477); POTASSIUM,K 4.4 mmol/L (3.5-5.3); RED BLOOD CELL COUNT 5.22 x10(6)uL (3.90-5.90); RED CELL DISTRIBUTION WIDTH 13.5 % (12.4-15.0); SODIUM,NA 141 mmol/L (135-145); WHITE BLOOD CELL COUNT,WBC 5.9 x10-3/uL (3.2-10.1)
[2024-01-07] MEDS: Sodium Chloride 0.9% 1,000 ML IV ONE (10:13)
[2024-01-07 10:17] LABS: A/G RATIO 0.8; ALANINE AMINOTRANSFERASE,ALT 19 U/L (12-36); ALBUMIN 3.5 g/dL (3.2-4.6); ALKALINE PHOSPHATASE 56 IU/L (56-112); ASPARTATE AMNIOTRANSFERASE,AST 14 IU/L (5-25); BILIRUBIN TOTAL 1.6 mg/dL (0.1-1.3); PROTEIN TOTAL,TP 7.7 g/dL (6.0-8.0)
[2024-01-07 11:21] LABS: BILIRUBIN,URINE NEGATIVE (NEGATIVE); GLUCOSE,URINE NORMAL (NORMAL); KETONES,URINE 15 mg/dL (NEGATIVE); LEUKOCYTE ESTERASE,URINE NEGATIVE (NEGATIVE); NITRITE,URINE NEGATIVE (NEGATIVE); OCCULT BLOOD,URINE NEGATIVE (NEGATIVE); PROTEIN,URINE NEGATIVE (NEGATIVE); UROBILINOGEN,URINE 1 mg/dL (NEGATIVE)
[2024-01-07 11:22] LABS: APPEARANCE,URINE CLEAR (CLEAR); COLOR,URINE YELLOW (YELLOW)
== END 2024-01-07 12:05 | disposition home or self-care (01) ==
LOC: FB.ED 09:19
DX: K57.32 Diverticulitis of large intestine without perforation or abscess without bleeding (principal); K21.9 Gastro-esophageal reflux disease without esophagitis; E66.9 Obesity, unspecified; Z90.49 Acquired absence of other specified parts of digestive tract; Z79.899 Other long term (current) drug therapy; Z91.041 Radiographic dye allergy status; Z68.37 Body mass index [BMI] 37.0-37.9, adult
CPT/HCPCS: 36415; 74176; 80053; 81003; 83605; 85025; 96360; 99284; J7030

== ENCOUNTER 2024-04-11 00:30 | Emergency (ER) | payer MEDICARE, BC ==
[2024-04-11] MEDS ORDERED: Acetaminophen/oxyCODONE 325-5 MG Tab PO ONE (00:31)
[2024-04-11] MEDS: oxyCODONE 5 MG Tab PO ONE (01:06)
== END 2024-04-11 01:20 | disposition home or self-care (01) ==
LOC: FB.ED 00:30
DX: M54.6 Pain in thoracic spine (principal); E78.00 Pure hypercholesterolemia, unspecified; K21.9 Gastro-esophageal reflux disease without esophagitis; E66.9 Obesity, unspecified; Z90.49 Acquired absence of other specified parts of digestive tract; Z79.899 Other long term (current) drug therapy; Z91.041 Radiographic dye allergy status
CPT/HCPCS: 99283; A9270

== ENCOUNTER 2024-04-11 10:22 | Inpatient (IN) | payer MEDICARE, BC ==
[2024-04-11] MEDS: oxyCODONE 5 MG Tab PO ONE (11:26)
[2024-04-11 11:42] LABS: BASOPHILS PERCENT AUTO 0.7 % (0.3-3.8); EOSINOPHILS ABSOLUTE AUTO 0.2 x10-3/uL (0.0-0.6); HEMATOCRIT 46.6 % (38.3-50.1); HEMOGLOBIN 15.9 g/dL (12.9-17.7); LYMPHOCYTES ABSOLUTE AUTO 1.4 x10-3/uL (0.5-4.5); LYMPHOCYTES PERCENT AUTO 22.8 % (15.8-45.3); MEAN CORPUSCULAR HGB CONC 34.2 g/dL (28.7-35.3); MEAN CORPUSCULAR VOLUME 87.7 fL (80.8-98.7); MONOCYTES ABSOLUTE AUTO 0.5 x10-3/uL (0.0-1.2); MONOCYTES PERCENT AUTO 7.7 % (5.5-15.2); NEUTROPHILS ABSOLUTE AUTO 3.9 x10-3/uL (1.7-6.9); NEUTROPHILS PERCENT AUTO 65.8 % (40.3-71.8); PLATELET COUNT,PLT 248 x10(3)uL (117-477); RED BLOOD CELL COUNT 5.31 x10(6)uL (3.90-5.90); RED CELL DISTRIBUTION WIDTH 13.8 % (12.4-15.0)
[2024-04-11 11:49] LABS: BILIRUBIN,URINE NEGATIVE (NEGATIVE); GLUCOSE,URINE NORMAL (NORMAL); KETONES,URINE NEGATIVE (NEGATIVE); LEUKOCYTE ESTERASE,URINE NEGATIVE (NEGATIVE); NITRITE,URINE NEGATIVE (NEGATIVE); OCCULT BLOOD,URINE NEGATIVE (NEGATIVE); PROTEIN,URINE NEGATIVE (NEGATIVE); UROBILINOGEN,URINE NORMAL (NEGATIVE)
[2024-04-11 11:51] LABS: A/G RATIO 0.9; ALANINE AMINOTRANSFERASE,ALT 26 U/L (12-36); ALBUMIN 3.6 g/dL (3.2-4.6); ALKALINE PHOSPHATASE 64 IU/L (56-112); ASPARTATE AMNIOTRANSFERASE,AST 12 IU/L (5-25); BLOOD UREA NITROGEN,BUN 12 mg/dL (7-18); CALCIUM 9.1 mg/dL (8.6-10.2); CARBON DIOXIDE,CO2 32 mmol/L (21-32); CHLORIDE,CL 104 mmol/L (100-110); ESTIMATED GFR 76 mL/min (>60); GLUCOSE RANDOM 137 mg/dL (80-116); POTASSIUM,K 3.9 mmol/L (3.5-5.3); PROTEIN TOTAL,TP 7.5 g/dL (6.0-8.0); SODIUM,NA 141 mmol/L (135-145)
[2024-04-11 11:55] LABS: APPEARANCE,URINE CLEAR (CLEAR); BACTERIA,URINE FEW (NS); COLOR,URINE YELLOW (YELLOW); RBC,URINE NOT SEEN (0-5); SQUAMOUS EPITHELIAL CELLS,UR FEW (NS,R,O); WBC,URINE 0-5 (0-5)
[2024-04-11] MEDS: HYDROmorphone 2 MG/ML SDV IVPUSH ONE (12:43)
[2024-04-11] MEDS: Lactulose Soln 10 GM/15 ML 30 ML UD Cup PO ONE (13:49)
[2024-04-11] MEDS ORDERED: Psyllium Husk Powder Sugar Free 5.85 GM Packet PO PRN (16:57)
[2024-04-11] MEDS ORDERED: Betamethasone Dipropionate/Clotrimazole 0.05-1% Crm 15 GM Tube TOP PRN (16:57)
[2024-04-11] MEDS ORDERED: Sodium Chloride 0.65% Nasal Spray 45 ML Bottle NASBOTH PRN (16:57)
[2024-04-11] MEDS ORDERED: Acetaminophen 650 MG Supp RECTAL PRN (17:01)
[2024-04-11] MEDS ORDERED: Naloxone 0.4 MG/ML SDV IVPUSH PRN (17:06)
[2024-04-11] MEDS: oxyCODONE 5 MG Tab PO PRN (17:14)
[2024-04-11] MEDS: Pantoprazole 40 MG Tab.CR PO SCH (20:31)
[2024-04-11] MEDS: Acetaminophen 325 MG Tab PO PRN (20:31)
[2024-04-11] MEDS: Bisacodyl 5 MG Tab PO SCH (20:31)
[2024-04-11] MEDS: Docusate Sodium 100 MG Cap PO SCH (20:31)
[2024-04-12 06:56] LABS: BASOPHILS PERCENT AUTO 0.5 % (0.3-3.8); EOSINOPHILS ABSOLUTE AUTO 0.2 x10-3/uL (0.0-0.6); EOSINOPHILS PERCENT AUTO 2.6 % (0.1-6.8); HEMATOCRIT 46.5 % (38.3-50.1); HEMOGLOBIN 15.7 g/dL (12.9-17.7); LYMPHOCYTES ABSOLUTE AUTO 1.4 x10-3/uL (0.5-4.5); LYMPHOCYTES PERCENT AUTO 18.7 % (15.8-45.3); MEAN CORPUSCULAR HEMOGLOBIN 29.8 pg (27.0-33.3); MEAN CORPUSCULAR HGB CONC 33.7 g/dL (28.7-35.3); MEAN CORPUSCULAR VOLUME 88.5 fL (80.8-98.7); MEAN PLATELET VOLUME 7.2 fL (6.7-11.0); MONOCYTES ABSOLUTE AUTO 0.7 x10-3/uL (0.0-1.2); MONOCYTES PERCENT AUTO 9.2 % (5.5-15.2); NEUTROPHILS ABSOLUTE AUTO 5.3 x10-3/uL (1.7-6.9); PLATELET COUNT,PLT 236 x10(3)uL (117-477); RED BLOOD CELL COUNT 5.25 x10(6)uL (3.90-5.90); RED CELL DISTRIBUTION WIDTH 14.2 % (12.4-15.0); WHITE BLOOD CELL COUNT,WBC 7.7 x10-3/uL (3.2-10.1)
[2024-04-12 07:01] LABS: BLOOD UREA NITROGEN,BUN 11 mg/dL (7-18); BUN/CREATININE RATIO 12.2 (9-20); CALCIUM 9.6 mg/dL (8.6-10.2); CARBON DIOXIDE,CO2 32 mmol/L (21-32); CHLORIDE,CL 104 mmol/L (100-110); CREATININE 0.9 mg/dL (0.70-1.30); EST CRCL DRUG DOSING (CG) 68.56 mL/min; ESTIMATED GFR 86 mL/min (>60); GLUCOSE RANDOM 125 mg/dL (80-116); POTASSIUM,K 4.4 mmol/L (3.5-5.3); SODIUM,NA 140 mmol/L (135-145)
[2024-04-12] MEDS: Polyethylene Glycol 3350 Powder 17 GM Packet PO PRN (08:24)
[2024-04-12] MEDS: Cholecalciferol (Vitamin D3) 25 MCG Tab PO SCH (08:26)
[2024-04-12] MEDS: Cyclobenzaprine 10 MG Tab PO PRN (10:39)
[2024-04-12] MEDS: HYDROmorphone 2 MG/ML SDV IVPUSH PRN (12:37)
[2024-04-13 07:02] LABS: BASOPHILS ABSOLUTE AUTO 0.1 x10-3/uL (0.0-0.3); BASOPHILS PERCENT AUTO 0.7 % (0.3-3.8); EOSINOPHILS ABSOLUTE AUTO 0.2 x10-3/uL (0.0-0.6); HEMATOCRIT 45.6 % (38.3-50.1); HEMOGLOBIN 15.3 g/dL (12.9-17.7); LYMPHOCYTES ABSOLUTE AUTO 1.2 x10-3/uL (0.5-4.5); LYMPHOCYTES PERCENT AUTO 14.9 % (15.8-45.3); MEAN CORPUSCULAR HEMOGLOBIN 29.5 pg (27.0-33.3); MEAN CORPUSCULAR HGB CONC 33.6 g/dL (28.7-35.3); MEAN CORPUSCULAR VOLUME 87.9 fL (80.8-98.7); MEAN PLATELET VOLUME 7.5 fL (6.7-11.0); MONOCYTES ABSOLUTE AUTO 0.7 x10-3/uL (0.0-1.2); MONOCYTES PERCENT AUTO 8.8 % (5.5-15.2); NEUTROPHILS ABSOLUTE AUTO 5.8 x10-3/uL (1.7-6.9); NEUTROPHILS PERCENT AUTO 72.6 % (40.3-71.8); PLATELET COUNT,PLT 246 x10(3)uL (117-477); RED BLOOD CELL COUNT 5.19 x10(6)uL (3.90-5.90); RED CELL DISTRIBUTION WIDTH 14.1 % (12.4-15.0); WHITE BLOOD CELL COUNT,WBC 7.9 x10-3/uL (3.2-10.1)
[2024-04-13 07:07] LABS: ALANINE AMINOTRANSFERASE,ALT 28 U/L (12-36); ALBUMIN 3.4 g/dL (3.2-4.6); ALKALINE PHOSPHATASE 59 IU/L (56-112); ASPARTATE AMNIOTRANSFERASE,AST 13 IU/L (5-25); BILIRUBIN TOTAL 1.1 mg/dL (0.1-1.3); BLOOD UREA NITROGEN,BUN 12 mg/dL (7-18); BUN/CREATININE RATIO 13.3 (9-20); CALCIUM 9.5 mg/dL (8.6-10.2); CARBON DIOXIDE,CO2 32 mmol/L (21-32); CHLORIDE,CL 104 mmol/L (100-110); CREATININE 0.9 mg/dL (0.70-1.30); EST CRCL DRUG DOSING (CG) 68.56 mL/min; ESTIMATED GFR 86 mL/min (>60); GLUCOSE RANDOM 130 mg/dL (80-116); POTASSIUM,K 4.5 mmol/L (3.5-5.3); PROTEIN TOTAL,TP 6.9 g/dL (6.0-8.0); SODIUM,NA 140 mmol/L (135-145)
[2024-04-13] MEDS ORDERED: Carboxymethylcellulose Sodium 0.5% Ophth Soln 15 ML Bottle EYEBOTH PRN (07:30)
[2024-04-13] MEDS: LORazepam 1 MG Tab PO ONE (13:05)
[2024-04-13] MEDS: Polyethylene Glycol 3350 Powder 238 GM Bot PO ONE (18:49)
[2024-04-14 06:32] LABS: BASOPHILS PERCENT AUTO 0.5 % (0.3-3.8); EOSINOPHILS ABSOLUTE AUTO 0.2 x10-3/uL (0.0-0.6); EOSINOPHILS PERCENT AUTO 2.8 % (0.1-6.8); HEMATOCRIT 45.6 % (38.3-50.1); HEMOGLOBIN 15.6 g/dL (12.9-17.7); LYMPHOCYTES ABSOLUTE AUTO 1.2 x10-3/uL (0.5-4.5); LYMPHOCYTES PERCENT AUTO 16.4 % (15.8-45.3); MEAN CORPUSCULAR HGB CONC 34.2 g/dL (28.7-35.3); MEAN CORPUSCULAR VOLUME 87.7 fL (80.8-98.7); MEAN PLATELET VOLUME 7.2 fL (6.7-11.0); MONOCYTES ABSOLUTE AUTO 0.8 x10-3/uL (0.0-1.2); MONOCYTES PERCENT AUTO 10.3 % (5.5-15.2); NEUTROPHILS ABSOLUTE AUTO 5.3 x10-3/uL (1.7-6.9); PLATELET COUNT,PLT 238 x10(3)uL (117-477); RED CELL DISTRIBUTION WIDTH 13.8 % (12.4-15.0); WHITE BLOOD CELL COUNT,WBC 7.5 x10-3/uL (3.2-10.1)
[2024-04-14 06:37] LABS: BLOOD UREA NITROGEN,BUN 11 mg/dL (7-18); BUN/CREATININE RATIO 12.2 (9-20); CALCIUM 9.4 mg/dL (8.6-10.2); CARBON DIOXIDE,CO2 30 mmol/L (21-32); CHLORIDE,CL 104 mmol/L (100-110); CREATININE 0.9 mg/dL (0.70-1.30); EST CRCL DRUG DOSING (CG) 68.56 mL/min; ESTIMATED GFR 86 mL/min (>60); GLUCOSE RANDOM 127 mg/dL (80-116); POTASSIUM,K 4.3 mmol/L (3.5-5.3); SODIUM,NA 139 mmol/L (135-145)
[2024-04-14] MEDS ORDERED: Ketorolac 15 MG/ML SDV IVPUSH PRN (12:47)
[2024-04-15 06:49] LABS: BLOOD UREA NITROGEN,BUN 13 mg/dL (7-18); CALCIUM 9.5 mg/dL (8.6-10.2); CARBON DIOXIDE,CO2 27 mmol/L (21-32); CHLORIDE,CL 103 mmol/L (100-110); ESTIMATED GFR 76 mL/min (>60); GLUCOSE RANDOM 148 mg/dL (80-116); POTASSIUM,K 4.3 mmol/L (3.5-5.3); SODIUM,NA 138 mmol/L (135-145)
[2024-04-15 11:30] VITALS: BP 126/65; PULSE 72
== END 2024-04-15 11:30 | disposition home or self-care (01) | DRG 552 ==
LOC: FB.ED 10:22 → FB.MS 14:58 → OBSVTOIN 04-13 09:58
PROVIDERS: ADMIT Internal Medicine; ATTEND Internal Medicine
DX: M54.6 Pain in thoracic spine (principal); M47.816 Spondylosis without myelopathy or radiculopathy, lumbar region; Z68.34 Body mass index [BMI] 34.0-34.9, adult; H54.7 Unspecified visual loss; E78.00 Pure hypercholesterolemia, unspecified; G47.30 Sleep apnea, unspecified; K21.9 Gastro-esophageal reflux disease without esophagitis; Z91.048 Other nonmedicinal substance allergy status; M19.90 Unspecified osteoarthritis, unspecified site; M54.2 Cervicalgia; G89.29 Other chronic pain; E66.9 Obesity, unspecified; Z96.659 Presence of unspecified artificial knee joint; K59.00 Constipation, unspecified; K57.30 Diverticulosis of large intestine without perforation or abscess without bleeding; M48.00 Spinal stenosis, site unspecified; Z79.899 Other long term (current) drug therapy; Z87.19 Personal history of other diseases of the digestive system; Z68.35 Body mass index [BMI] 35.0-35.9, adult; Z91.041 Radiographic dye allergy status; Z98.49 Cataract extraction status, unspecified eye; Z98.890 Other specified postprocedural states; Z90.89 Acquired absence of other organs; Z90.49 Acquired absence of other specified parts of digestive tract; Z87.891 Personal history of nicotine dependence
CPT/HCPCS: 36415; 72146; 72148; 74176; 74181; 80048; 80053; 81001; 83690; 85025; 94150; 96374; 96376; 99284-25; 99285; A9270-GY; G0378; J1171; J7509

== ENCOUNTER 2024-07-20 19:33 | Emergency (ER) | payer MEDICARE, BC ==
[2024-07-20] MEDS ORDERED: Sodium Chloride 0.9% 10 ML Syringe FLUSH PRN (19:59)
[2024-07-20 20:09] LABS: BASOPHILS ABSOLUTE AUTO 0.1 x10-3/uL (0.0-0.3); BASOPHILS PERCENT AUTO 0.7 % (0.3-3.8); EOSINOPHILS ABSOLUTE AUTO 0.3 x10-3/uL (0.0-0.6); EOSINOPHILS PERCENT AUTO 3.3 % (0.1-6.8); HEMATOCRIT 41.3 % (38.3-50.1); HEMOGLOBIN 14.1 g/dL (12.9-17.7); LYMPHOCYTES ABSOLUTE AUTO 2.7 x10-3/uL (0.5-4.5); LYMPHOCYTES PERCENT AUTO 28.5 % (15.8-45.3); MEAN CORPUSCULAR HEMOGLOBIN 30.6 pg (27.0-33.3); MEAN CORPUSCULAR HGB CONC 34.1 g/dL (28.7-35.3); MEAN CORPUSCULAR VOLUME 89.7 fL (80.8-98.7); MEAN PLATELET VOLUME 7.4 fL (6.7-11.0); MONOCYTES ABSOLUTE AUTO 0.8 x10-3/uL (0.0-1.2); MONOCYTES PERCENT AUTO 8.9 % (5.5-15.2); NEUTROPHILS ABSOLUTE AUTO 5.5 x10-3/uL (1.7-6.9); NEUTROPHILS PERCENT AUTO 58.6 % (40.3-71.8); PLATELET COUNT,PLT 316 x10(3)uL (117-477); RED CELL DISTRIBUTION WIDTH 13.6 % (12.4-15.0); WHITE BLOOD CELL COUNT,WBC 9.5 x10-3/uL (3.2-10.1)
[2024-07-20 20:15] LABS: BLOOD UREA NITROGEN,BUN 19 mg/dL (7-18); BUN/CREATININE RATIO 14.6 (9-20); CARBON DIOXIDE,CO2 30 mmol/L (21-32); CHLORIDE,CL 106 mmol/L (100-110); CREATININE 1.3 mg/dL (0.70-1.30); EST CRCL DRUG DOSING (CG) 48.91 mL/min; ESTIMATED GFR 55 mL/min (>60); GLUCOSE RANDOM 134 mg/dL (80-116); POTASSIUM,K 3.9 mmol/L (3.5-5.3); SODIUM,NA 143 mmol/L (135-145)
[2024-07-20] MEDS: Sodium Chloride 0.9% 1,000 ML IV ONE (20:20)
[2024-07-20 20:21] LABS: A/G RATIO 0.8; ALANINE AMINOTRANSFERASE,ALT 23 U/L (12-36); ALBUMIN 3.2 g/dL (3.2-4.6); ALKALINE PHOSPHATASE 64 IU/L (56-112); ASPARTATE AMNIOTRANSFERASE,AST 15 IU/L (5-25); BILIRUBIN TOTAL 0.6 mg/dL (0.1-1.3)
[2024-07-20 21:58] LABS: BASOPHILS ABSOLUTE AUTO 0.1 x10-3/uL (0.0-0.3); BASOPHILS PERCENT AUTO 0.4 % (0.3-3.8); EOSINOPHILS ABSOLUTE AUTO 0.1 x10-3/uL (0.0-0.6); EOSINOPHILS PERCENT AUTO 0.7 % (0.1-6.8); HEMATOCRIT 36.8 % (38.3-50.1); HEMOGLOBIN 12.6 g/dL (12.9-17.7); LYMPHOCYTES ABSOLUTE AUTO 0.9 x10-3/uL (0.5-4.5); LYMPHOCYTES PERCENT AUTO 6.5 % (15.8-45.3); MEAN CORPUSCULAR HEMOGLOBIN 30.7 pg (27.0-33.3); MEAN CORPUSCULAR HGB CONC 34.3 g/dL (28.7-35.3); MEAN CORPUSCULAR VOLUME 89.4 fL (80.8-98.7); MEAN PLATELET VOLUME 7.4 fL (6.7-11.0); MONOCYTES ABSOLUTE AUTO 0.7 x10-3/uL (0.0-1.2); NEUTROPHILS ABSOLUTE AUTO 11.9 x10-3/uL (1.7-6.9); NEUTROPHILS PERCENT AUTO 87.4 % (40.3-71.8); PLATELET COUNT,PLT 249 x10(3)uL (117-477); RED BLOOD CELL COUNT 4.11 x10(6)uL (3.90-5.90); RED CELL DISTRIBUTION WIDTH 13.4 % (12.4-15.0); WHITE BLOOD CELL COUNT,WBC 13.6 x10-3/uL (3.2-10.1)
== END 2024-07-20 22:50 | disposition home or self-care (01) ==
LOC: FB.ED 19:33
DX: K92.2 Gastrointestinal hemorrhage, unspecified (principal); E78.00 Pure hypercholesterolemia, unspecified; K21.9 Gastro-esophageal reflux disease without esophagitis; Z91.041 Radiographic dye allergy status; Z79.899 Other long term (current) drug therapy; Z90.49 Acquired absence of other specified parts of digestive tract; Z87.891 Personal history of nicotine dependence
CPT/HCPCS: 36415; 74176; 80053; 85025; 86140; 86850; 86900; 86901; 96360; 99284; J7030

== ENCOUNTER 2024-07-27 16:24 | Emergency (ER) | payer MEDICARE, BC ==
[2024-07-27] MEDS ORDERED: Sodium Chloride 0.9% 10 ML Syringe FLUSH PRN (16:44)
[2024-07-27] MEDS: Sodium Chloride 0.9% 1,000 ML IV ONE (17:13)
[2024-07-27 17:14] LABS: BASOPHILS PERCENT AUTO 0.5 % (0.3-3.8); EOSINOPHILS ABSOLUTE AUTO 0.1 x10-3/uL (0.0-0.6); EOSINOPHILS PERCENT AUTO 1.5 % (0.1-6.8); HEMOGLOBIN 10.6 g/dL (12.9-17.7); LYMPHOCYTES ABSOLUTE AUTO 1.6 x10-3/uL (0.5-4.5); LYMPHOCYTES PERCENT AUTO 20.3 % (15.8-45.3); MEAN CORPUSCULAR HEMOGLOBIN 30.5 pg (27.0-33.3); MEAN CORPUSCULAR HGB CONC 34.1 g/dL (28.7-35.3); MEAN CORPUSCULAR VOLUME 89.3 fL (80.8-98.7); MEAN PLATELET VOLUME 7.5 fL (6.7-11.0); MONOCYTES ABSOLUTE AUTO 0.6 x10-3/uL (0.0-1.2); MONOCYTES PERCENT AUTO 7.5 % (5.5-15.2); NEUTROPHILS ABSOLUTE AUTO 5.4 x10-3/uL (1.7-6.9); NEUTROPHILS PERCENT AUTO 70.2 % (40.3-71.8); PLATELET COUNT,PLT 312 x10(3)uL (117-477); RED BLOOD CELL COUNT 3.48 x10(6)uL (3.90-5.90); RED CELL DISTRIBUTION WIDTH 13.5 % (12.4-15.0); WHITE BLOOD CELL COUNT,WBC 7.7 x10-3/uL (3.2-10.1)
[2024-07-27 17:16] LABS: BLOOD UREA NITROGEN,BUN 17 mg/dL (7-18); BUN/CREATININE RATIO 15.5 (9-20); CALCIUM 8.6 mg/dL (8.6-10.2); CARBON DIOXIDE,CO2 26 mmol/L (21-32); CHLORIDE,CL 107 mmol/L (100-110); CREATININE 1.1 mg/dL (0.70-1.30); ESTIMATED GFR 67 mL/min (>60); GLUCOSE RANDOM 167 mg/dL (80-116); POTASSIUM,K 3.4 mmol/L (3.5-5.3); SODIUM,NA 142 mmol/L (135-145)
[2024-07-27 17:22] LABS: A/G RATIO 0.9; ALANINE AMINOTRANSFERASE,ALT 19 U/L (12-36); ALBUMIN 2.9 g/dL (3.2-4.6); ALKALINE PHOSPHATASE 50 IU/L (56-112); ASPARTATE AMNIOTRANSFERASE,AST 14 IU/L (5-25); BILIRUBIN TOTAL 0.6 mg/dL (0.1-1.3); MAGNESIUM 1.6 mg/dL (1.8-2.5); PROTEIN TOTAL,TP 6.1 g/dL (6.0-8.0)
[2024-07-27] MEDS: Pantoprazole 40 MG Vial IVPUSH ONE (18:48)
[2024-07-27] MEDS ORDERED: Sodium Chloride 0.9% 1,000 ML IV SCH (19:15)
[2024-07-27] MEDS: Sodium Chloride 0.9% 500 ML IV ONE (19:30)
== END 2024-07-27 21:30 ==
LOC: FB.ED 16:24
DX: K92.2 Gastrointestinal hemorrhage, unspecified (principal); I95.9 Hypotension, unspecified; D64.9 Anemia, unspecified; E78.00 Pure hypercholesterolemia, unspecified; Z90.49 Acquired absence of other specified parts of digestive tract; Z91.041 Radiographic dye allergy status; Z79.899 Other long term (current) drug therapy
CPT/HCPCS: 36415; 36430; 80053; 83605; 83735; 84484; 85025; 86850; 86900; 86901; 86920; 86922; 93005; 93010; 96361; 96374; 99285; J2470; P9016